=== PATIENT | female | born 1975 | race Caucasian/White ===

== ENCOUNTER 2024-04-20 01:21 | Emergency (ER) | payer MEDICAID, SELFPAY ==
[2024-04-20 01:23] VITALS: PULSE 76; RESP 20; O2SAT 96
[2024-04-20 01:33] VITALS: BP 138/86; PULSE 76; RESP 18; TEMP 36.6; O2SAT 99
--- NOTE | 2024-04-20 02:05 | PD.EDRME ---
Rapid Medical Screening Exam [facility] Arrival date/time: 04/20/24 01:21 49F with history of psych presents to ED with possible ab pain. Patient is talking to herself and is mostly incoherent. Chief Complaint: Abdominal Pain Vital signs: Vital Signs Temperature 98 F 04/20/24 01:33 Pulse Rate 76 04/20/24 01:33 Respiratory Rate 18 04/20/24 01:33 Blood Pressure 138/86 H 04/20/24 01:33 Pulse Oximetry (%) 99 04/20/24 01:33 Oxygen Delivery Method Room Air 04/20/24 01:33
[2024-04-20 03:45] LABS: Collection Type, Urine Clean Catch
[2024-04-20 04:18] LABS: Bilirubin,Urine Negative (Negative); Blood,Urine Negative (Negative); Clarity,Urine Clear (Clear/Hazy); Color,Urine Lt-Yellow (Lt Yel-Yel); Culture Indicated,Urine Not Indicated; Glucose, Urine Negative (Negative); Ketones,Urine Negative (Negative); Leukocyte Esterase,Urine Negative (Negative); Nitrite,Urine Negative (Negative); PH,Urine 5.5 (5.0-7.0); Protein,Urine Negative (Neg - Trace); RBC,Urine 2 /hpf (0-3); Specific Gravity,Urine 1.024 (1.001-1.035); Squamous Epithelial Cell,Urine 3 /hpf (0-5); Urobilinogen,Urine Negative mg/dL (0.0-1.0); WBC,Urine 3 /hpf (0-5)
[2024-04-20 04:26] LABS: Amphetamine/Methamp Scrn,U Positive (Negative); Barbiturate Screen,Urine Negative (Negative); Benzodiazepines Screen,Urine Negative (Negative); Benzoylecgonine Screen, Ur Negative (Negative); Fentanyl Screen,Urine Negative (Negative); Opiate Screen,Urine Negative (Negative); THC Screen,Urine Negative (Negative)
[2024-04-20 04:37] LABS: HCG Qualitative,Urine Negative
--- NOTE | 2024-04-20 07:47 | EDNOTE_ITS ---
ED Abdominal Pain RME/HPI General Chief Complaint: Abdominal Pain Stated complaint: ABDOMINAL PAIN Time seen by provider: 04/20/24 07:34 Arrival date/time: 04/20/24 0600 This is a 49 female significant past medical history of psych issues and drug- induced psychosis presents to Emergency for complaints of abdominal pain. Upon arrival patient requesting to eat a sandwich and wanting to sleep in the bed patient is homeless. No complaints verbalized. Source: patient RME / HPI RME / HPI narrative: 04/20/24 01:21 49F with history of psych presents to ED with possible ab pain. Patient is talking to herself and is mostly incoherent. Related Data Previous Rx's ?Medication ?Instructions ?Recorded albuterol sulfate 90 mcg/actuation 2 puff inhalation QID PRN 05/22/20 aerosol inhaler shortness of breath or wheezing #18 grams loratadine 10 mg capsule 10 mg PO QDAY PRN allergy symptoms 07/19/20 #30 caps betamethasone dipropionate 0.05 % 1 applic topical BID PRN skin 05/21/21 topical cream irritation #15 grams dimethicone 5 % topical cream 1 applic topical BID #118 mL 05/21/21 hydrocortisone 0.5 % topical cream 1 applic topical BID PRN skin 12/20/21 irritation #28.4 grams pantoprazole 40 mg tablet,delayed 40 mg PO QDAY #30 tabs 12/26/21 release (Protonix) risperidone 1 mg tablet 1 mg PO BID #30 tabs 12/26/21 amoxicillin 875 mg-potassium 1 tab PO BID #20 tabs 11/14/22 clavulanate 125 mg tablet ibuprofen 400 mg tablet 400 mg PO Q8H PRN pain #30 tabs 01/05/23 Allergies Allergy/AdvReac Type Severity Reaction Status Date / Time No Known Allergies Allergy Verified 07/31/23 01:37 Review of Systems Review of Systems Systems Reviewed: All systems reviewed, normal except as documented ED Exam Narrative Physical exam: Disheveled 49-year-old female General: Sittiing in Exam table in no acute distress, answering questions appropriately HENT: normocephalic, atraumatic, EOMI, PERRLA, moist mucous membranes Chest: chest wall is nontender Cardiac: regular rate and rhythm, normal S1 and S2, no murmurs, rubs, or gallops, capillary refill ?2 seconds Pulmonary: clear to auscultation bilaterally, no wheezing, crackles, or rhonchi Abdominal: active bowel sounds, soft, nontender, nondistended Neuro: A&OX3, CN II-XII intact, sensation grossly intact bilaterally in UE and LE. Skin: no rashes, no ecchymosis Ext: no lower extremity edema Course Quality Measures none Orders Category Date Time Status Drug Screen,Urine Stat Lab 04/20/24 03:30 Completed HCG Qualitative,Urine Stat Lab 04/20/24 03:30 Completed Urinalysis, C/S if Indicated Stat Lab 04/20/24 03:30 Completed Vital Signs Vital signs: Vital Signs Temperature 98 F 04/20/24 01:33 Pulse Rate 76 04/20/24 01:33 Respiratory Rate 18 04/20/24 01:33 Blood Pressure 138/86 H 04/20/24 01:33 Pulse Oximetry (%) 99 04/20/24 01:33 Oxygen Delivery Method Room Air 04/20/24 01:33 Abdominal Pain MDM MDM Narrative MDM Narrative:: Patient was evaluated in the emergency department for possible abdominal pain patient refused labs and any further workup Patient was to be discharged home Patient data External records reviewed:: [facility] previous records Clinical information provided by:: patient Social determinants that could affect healthcare access:: alcohol use Patient has the following chronic illnesses:: History of housing, substance abuse mental health How is presenting disease/condition affected by chronic disease/condition?: exacerbated by Evaluation data The following diagnostics were reviewed and interpreted by me:: lab results and radiology exam(s) Lab and/or radiology exams considered but not ordered:: no Interpretation Summary: None Medications / Prescriptions Medications or Prescriptions considered but not ordered:: no Medication administrations:: N/A Consultations Consultation(s) initiated? (list below): No Diagnosis Differential diagnosis abdominal pain: abdominal pain, endometriosis, gastroenteritis, pancreatitis and small bowel obstruction Most likely diagnosis given after review of the tests above:: Abdominal pain, drug abuse Admission Indicated Admission indicated?: not indicated Admission Request Was there a request for admission?: No Disposition Plan Disposition Plan: Discharge Discharge Attestation Discharge Attestation: The patient and all family members were given an opportunity to ask questions and understood the discharge instructions. Discharge instructions specifically effects, indications for sooner follow up or return to the emergency department, and the expected course of current diagnosis. Patient condition: Stable Discharge Plan Plan Patient Disposition: HOME (Self Care) Patient condition on transfer: Stable Prescriptions/Referrals Prescriptions/Med Rec: No Action hydrocortisone 0.5 % cream 1 applic topical BID PRN (Reason: skin irritation) Qty: 28.4 0RF albuterol sulfate 90 mcg/actuation HFA aerosol inhaler 2 puff inhalation QID PRN (Reason: shortness of breath or wheezing) Qty: 18 0RF loratadine 10 mg capsule 10 mg PO QDAY PRN (Reason: allergy symptoms) Qty: 30 0RF betamethasone dipropionate 0.05 % cream 1 applic topical BID PRN (Reason: skin irritation) Qty: 15 0RF dimethicone 5 % cream 1 applic topical BID Qty: 118 0RF risperidone 1 mg Tablet 1 mg PO BID Qty: 30 0RF pantoprazole [Protonix] 40 mg tablet,delayed release (DR/EC) 40 mg PO QDAY Qty: 30 0RF amoxicillin-pot clavulanate 875-125 mg tablet 1 tab PO BID Qty: 20 0RF ibuprofen 400 mg tablet 400 mg PO Q8H PRN (Reason: pain) Qty: 30 0RF Referrals: No Primary/Family,Physician [Primary Care Provider] - In 1 week Problem List Clinical Impression: Drug abuse Patient/Caregiver Discharge Instructions Discharge Activity: activity as tolerated Education Materials: ED Drug Abuse Additional Instructions: Please follow-up with your primary doctor return to the emergency department with any worsening symptoms change in condition. You need to stop using drugs it can harm your health Print Language: Angolan Stand Alone Forms: Obd[employer]ia Award Info., Patient Portal Info Letter PA/DIRECTOR OF ONCOLOGY Supervising Physician PA/DIRECTOR OF ONCOLOGY Supervising Physician: dr Mendosa
--- NOTE | 2024-04-20 07:51 | PC.NURSE ---
Patient refusing blood draw and repeat vitals. Provider talked to patient. Patient in nbo signs of acute distress at this time.
== END 2024-04-20 07:53 | disposition home or self-care (01) ==
PROVIDERS: Physician Assistant; Emergency Provider Emergency Medicine
DX: F19.10 Other psychoactive substance abuse, uncomplicated (principal); Z59.00 Homelessness unspecified
CPT/HCPCS: 80053; 80307; 80320; 81001; 81025; 83690; 85025; 99283; G0480

== ENCOUNTER 2024-05-02 02:50 | Emergency (ER) | payer MEDICAID, SELFPAY ==
[2024-05-02 02:51] VITALS: PULSE 88; RESP 18; O2SAT 96
[2024-05-02 03:21] VITALS: BP 117/75; PULSE 91; RESP 18; TEMP 36.7; O2SAT 97; BMI 17.4
--- NOTE | 2024-05-02 03:28 | XR_ITS ---
Examination: Abdomen sonogram, Limited Date and time of exam: April 01, 2025 0400 hrs. Indications: Onset epigastric pain beginning 3 days ago Technique: Real-time solorzano scale transabdominal sonographic images of the upper abdomen obtained. Findings: Absent gallbladder Normal common bile duct 0.3 cm Pancreatic head 2.1 cm Liver 11.6 cm smooth contour no focal liver lesions Normal hepatopedal portal venous flow Patent IVC Impression: Absent gallbladder Normal common bile duct No focal liver lesions
--- NOTE | 2024-05-02 03:29 | EDRME_ITS ---
Rapid Medical Screening Exam [facility] Arrival date/time: 05/02/24 02:50 49F with history of psych/drug use presents to ED with RUQ/epigastric pain. Chief Complaint: Abdominal Pain Vital signs: Vital Signs Temperature 98.0 F 05/02/24 03:21 Pulse Rate 91 05/02/24 03:21 Respiratory Rate 18 05/02/24 03:21 Blood Pressure 117/75 05/02/24 03:21 Pulse Oximetry (%) 97 05/02/24 03:21 Oxygen Delivery Method Room Air 05/02/24 03:21
--- NOTE | 2024-05-02 05:14 | PRELIM_ITS ---
Gallbladder ultrasound. May 02, 2024 at 0400 hoursClinical history: Right upper quadrant/epigastr ic pain.Findings:The visualized liver is normal in echogenicity without mass or ductal dilatation. Th e portal vein demonstrates hepatopetal flow. The hepatic veins are patent.The gallbladder is surgical ly absent. No evidence of fluid collection in the gallbladder fossa.The common duct is normal in diane sav at 3 mm. The pancreas is unremarkable to the extent visualized. The inferior vena cava is patent. Impression:Post cholecystectomy. No evidence of fluid collection in the gallbladder fossa. Report Alison ctronically Signed By: Mike Valderrama 05/02/2024 5:14:10 AM [EST]
--- NOTE | 2024-05-02 06:50 | PC.NURSE ---
PT WALKED OUT OF THE ER AND DID NOT RETURN.
== END 2024-05-02 06:50 | disposition left against medical advice (07) ==
LOC: SERX 05:53
PROVIDERS: Emergency Provider Emergency Medicine; PCP Family Medicine
DX: R10.13 Epigastric pain (principal); R10.11 Right upper quadrant pain; Z53.29 Procedure and treatment not carried out because of patient's decision for other reasons
CPT/HCPCS: 76705; 80053; 81001; 83690; 85025; 99281

== ENCOUNTER 2024-05-13 04:32 | Emergency (ER) | payer MEDICAID, SELFPAY ==
[2024-05-13 04:33] VITALS: PULSE 104; RESP 18; O2SAT 99
--- NOTE | 2024-05-13 04:53 | PD.EDRME ---
Rapid Medical Screening Exam [facility] Arrival date/time: 05/13/24 04:32 Chief Complaint: Dental/Oral/Throat Vital signs: Vital Signs Temperature 97.7 F 05/13/24 05:03 Pulse Rate 92 05/13/24 05:03 Respiratory Rate 17 05/13/24 05:03 Blood Pressure 118/72 05/13/24 05:03 Pulse Oximetry (%) 97 05/13/24 05:03 Oxygen Delivery Method Room Air 05/13/24 05:03 [facility] Narrative: Patient states she has a headache, she's hungry and has a rash to her buttocks.
[2024-05-13 05:03] VITALS: BP 118/72; PULSE 92; RESP 17; TEMP 36.5; O2SAT 97
--- NOTE | 2024-05-13 06:30 | PC.NURSE ---
shift production supervisor staff provided patient with clothes and food.
--- NOTE | 2024-05-13 08:09 | PC.NURSE ---
WENT TO LOBBY TO GET PT CHARU PROVIDER COULD LOOK AT [facility] ON BUTTOCKS. PT STOOD AND IS NOT WEARING PANTS (THEY ARE ON THE FLOOR, WET, NEXT TO HER IN THE LOBBY). PT WRAPPED IN 2 BLANKETS
--- NOTE | 2024-05-13 08:10 | PC.NURSE ---
PT WALKED TO RME 6 FOR EXAM BY PROVIDER. SAT IN CAIR AND THEN PT STOOD UP AND LAY DOWN ON THE FLOOR AND REFUSED TO GET BACK INTO CHAIR
--- NOTE | 2024-05-13 08:12 | EDNOTE_ITS ---
ED Skin Abcess FB-RME/HPI General Chief complaint: Dental/Oral/Throat Stated complaint: THROAT PAIN AND RECTAL PAIN Time Seen by Provider: 05/13/24 07:50 Source: patient Arrival date/time: 05/13/24 0700 This Is a 49-year-old female methamphetamine use and homeless patient who presents to the emergency department throat pain, and possible infection to her buttocks left side. Patient requesting a meal and a coffee. Denies any fever, chills no lethargy Mode of arrival: ambulatory RME / HPI RME / HPI narrative: Patient states she has a headache, she's hungry and has a rash to her buttocks. Related Data Previous Rx's ?Medication ?Instructions ?Recorded albuterol sulfate 90 mcg/actuation 2 puff inhalation QID PRN 05/22/20 aerosol inhaler shortness of breath or wheezing #18 grams loratadine 10 mg capsule 10 mg PO QDAY PRN allergy symptoms 07/19/20 #30 caps betamethasone dipropionate 0.05 % 1 applic topical BID PRN skin 05/21/21 topical cream irritation #15 grams dimethicone 5 % topical cream 1 applic topical BID #118 mL 05/21/21 hydrocortisone 0.5 % topical cream 1 applic topical BID PRN skin 12/20/21 irritation #28.4 grams pantoprazole 40 mg tablet,delayed 40 mg PO QDAY #30 tabs 12/26/21 release (Protonix) risperidone 1 mg tablet 1 mg PO BID #30 tabs 12/26/21 amoxicillin 875 mg-potassium 1 tab PO BID #20 tabs 11/14/22 clavulanate 125 mg tablet ibuprofen 400 mg tablet 400 mg PO Q8H PRN pain #30 tabs 01/05/23 cephalexin 500 mg capsule 500 mg PO BID 7 days #14 caps 05/13/24 Allergies Allergy/AdvReac Type Severity Reaction Status Date / Time No Known Allergies Allergy Verified 07/31/23 01:37 Review of Systems Review of Systems Systems Reviewed: All systems reviewed, normal except as documented Narrative Review of Systems: Gen: No fever, no chills, no weight loss EYES: No discharge, no visual changes, no pain HEENT: No ear pain, no congestion, no sore throat PULM: No shortness of breath, no cough, no congestion CV: No chest pain, no dyspnea on exertion, no palpitations GI: No nausea, no vomiting, no diarrhea, no pain, no constipation : No frequency, no urgency, no dysuria Musc/skel: No joint pain, no back pain Skin: Possible buttocks skin infection Psyc: No hallucinations, no depression Heme/Lymph: No easy bleeding or bruising tendencies Neuro: No weakness, no headache ED Exam Narrative Physical exam: General: Disheveled, foul odor 49-year-old female Sittiing in Exam table in no acute distress. HENT: normocephalic, atraumatic, EOMI, PERRLA, moist mucous membranes Chest: chest wall is nontender Cardiac: regular rate and rhythm, normal S1 and S2, no murmurs, rubs, or gallops, capillary refill ?2 seconds Pulmonary: clear to auscultation bilaterally, no wheezing, crackles, or rhonchi Abdominal: active bowel sounds, soft, nontender, nondistended Neuro: A&OX3, CN II-XII intact, sensation grossly intact bilaterally in UE and LE. Skin: Quarter size cellulitis pattern to left mid buttocks no fluctuance noted. Ext: no lower extremity edema Course Quality Measures none Orders Category Date Time Status Acetaminophen Tab [Tylenol ES Tab] Med 05/13/24 05:06 Discontinued 1,000 mg PO X1 ONE Vital Signs Vital signs: Vital Signs Temperature 97.7 F 05/13/24 05:03 Pulse Rate 92 05/13/24 05:03 Respiratory Rate 17 05/13/24 05:03 Blood Pressure 118/72 05/13/24 05:03 Pulse Oximetry (%) 97 05/13/24 05:03 Oxygen Delivery Method Room Air 05/13/24 05:03 Skin / Abscess / Foreign Body MDM Narrative MDM Narrative:: This is 49 y old homeless, history of mental illness drug abuse presents emergency department on multiple occasions today complaining of a possible boil to her left buttocks. Patient is disheveled presents to the ED are multiple ti mes especially during night because she is cold. Case management has been notified and has provided her close food. I visualized her small cellulitis to her left mid buttocks no abscess formation triple antibiotic packets handed to patient. And I sent a 7-day course of Keflex. Stefanyes to follow-up with her clinic 2 days for follow-up care return to the emergency department is any worsening symptoms change in condition. Patient data External records reviewed:: [facility] previous records and Other (specify) Clinical information provided by:: patient Social determinants that could affect healthcare access:: other (specify) ( substance abuse, housing, mental health) Patient has the following chronic illnesses:: Yes psych, mental disease, housing How is presenting disease/condition affected by chronic disease/condition?: exacerbated by Evaluation data The following diagnostics were reviewed and interpreted by me:: other (specify) Lab and/or radiology exams considered but not ordered:: no Interpretation Summary: none Medications / Prescriptions Medications or Prescriptions considered but not ordered:: Consider antibiotics Medication administrations:: Medication Administration History Discontinued Medications Acetaminophen (Acetaminophen 500 Mg Tablet) 1,000 mg PO X1 ONE Stop: 05/13/24 05:07 Last Admin: 05/13/24 05:33 Dose: Not Given Documented By: INDU Non-Admin Reason: Patient Refused No meds given Consultations Consultation(s) initiated? (list below): No Diagnosis Skin/Abscess Differential Diagnosis: abscess of skin or subcutaneous tissue, urticaria, allergic reaction to drug, cellulitis, insect bites and contact dermatitis Most likely diagnosis given after review of the tests above:: Buttock cellulitis. Drug abuse Admission Indicated Admission indicated?: not indicated Admission Request Was there a request for admission?: No Disposition Plan Disposition Plan: Discharge Discharge Attestation Discharge Attestation: The patient and all family members were given an opportunity to ask questions and understood the discharge instructions. Discharge instructions specifically effects, indications for sooner follow up or return to the emergency department, and the expected course of current diagnosis. Patient condition: Stable Discharge Plan Plan Patient Disposition: HOME (Self Care) Prescriptions/Referrals Prescriptions/Med Rec: New cephalexin 500 mg capsule 500 mg PO BID 7 Days Qty: 14 0RF No Action hydrocortisone 0.5 % cream 1 applic topical BID PRN (Reason: skin irritation) Qty: 28.4 0RF albuterol sulfate 90 mcg/actuation HFA aerosol inhaler 2 puff inhalation QID PRN (Reason: shortness of breath or wheezing) Qty: 18 0RF loratadine 10 mg capsule 10 mg PO QDAY PRN (Reason: allergy symptoms) Qty: 30 0RF betamethasone dipropionate 0.05 % cream 1 applic topical BID PRN (Reason: skin irritation) Qty: 15 0RF dimethicone 5 % cream 1 applic topical BID Qty: 118 0RF risperidone 1 mg Tablet 1 mg PO BID Qty: 30 0RF pantoprazole [Protonix] 40 mg tablet,delayed release (DR/EC) 40 mg PO QDAY Qty: 30 0RF amoxicillin-pot clavulanate 875-125 mg tablet 1 tab PO BID Qty: 20 0RF ibuprofen 400 mg tablet 400 mg PO Q8H PRN (Reason: pain) Qty: 30 0RF Referrals: Bryn Little MD [Primary Care Provider] - In 1 week Problem List Clinical Impression: Cellulitis Patient/Caregiver Discharge Instructions Discharge Activity: activity as tolerated Education Materials: ED Cellulitis Additional Instructions: Please pick and shovel man your antibiotics from your pharmacy. Apply triple antibiotic as directed. Follow-up with your primary doctor clinic 2 to 3 days for follow-up care Return to the emergency department if there is any worsening symptoms change in condition. Print Language: Belizean Stand Alone Forms: Obdulia Award Info., Patient Portal Info Letter PA/GOVERNMENT AFFAIRS MANAGER Supervising Physician PA/MELANY Supervising Physician: Dr Mendosa
--- NOTE | 2024-05-13 08:16 | PC.NURSE ---
AL FROM [employer] SUPERVISOR GOING UPSTAIRS TO GET CLOTHING FOR PT
--- NOTE | 2024-05-13 08:36 | PC.CC ---
ASW informed by ED staff that pt will need clothing items prior to D/c. ASW provided pt with weather appropriate shirt and pants. Pt noted to have a coat and shoes of her own. ASW will remain available as needed for pt care and staff support.
== END 2024-05-13 08:41 | disposition home or self-care (01) ==
PROVIDERS: Emergency Provider Emergency Medicine; PCP Family Medicine
DX: L03.317 Cellulitis of buttock (principal)
CPT/HCPCS: 99282

== ENCOUNTER 2024-06-21 01:58 | Emergency (ER) | payer MEDICAID, SELFPAY ==
[2024-06-21 02:12] VITALS: BP 110/64; PULSE 96; RESP 20; TEMP 36.4; O2SAT 98
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
== END 2024-06-21 07:24 | disposition home or self-care (01) ==
PROVIDERS: Emergency Provider Emergency Medicine
DX: R10.9 Unspecified abdominal pain (principal); Z59.00 Homelessness unspecified
CPT/HCPCS: 99283

== ENCOUNTER 2024-07-27 05:42 | Emergency (ER) | payer MEDICAID, SELFPAY ==
[2024-07-27 05:43] VITALS: BMI 21.9
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
== END 2024-07-27 06:27 | disposition left against medical advice (07) ==
LOC: SERX 06:30
PROVIDERS: Emergency Provider Emergency Medicine
DX: S49.90XA Unspecified injury of shoulder and upper arm, unspecified arm, initial encounter (principal); X58.XXXA Exposure to other specified factors, initial encounter; Z59.00 Homelessness unspecified; Z53.29 Procedure and treatment not carried out because of patient's decision for other reasons
CPT/HCPCS: 99281

== ENCOUNTER 2024-08-07 04:57 | Emergency (ER) | payer MEDICAID, SELFPAY ==
[2024-08-07 04:59] VITALS: PULSE 84; RESP 18; O2SAT 99; BMI 19.2
[2024-08-07 05:43] VITALS: BP 157/97; PULSE 86; RESP 18; TEMP 36.6; O2SAT 100
--- NOTE | 2024-08-07 06:15 | PC.NURSE ---
PATIENT WALKED OUT TO ED LOBBY AT THIS TIME.
== END 2024-08-07 06:46 | disposition left against medical advice (07) ==
LOC: SERX 06:36
PROVIDERS: Emergency Provider Emergency Medicine
DX: Z53.21 Procedure and treatment not carried out due to patient leaving prior to being seen by health care provider (principal)
CPT/HCPCS: 99281

== ENCOUNTER 2024-09-06 01:21 | Emergency (ER) | payer MEDICAID, SELFPAY ==
[2024-09-06 01:22] VITALS: BMI 19.7
--- NOTE | 2024-09-06 01:49 | PC.NURSE ---
STAFF CALLED PATIENT IN LOBBY AND OUTSIDE, NO ANSWER RECEIVED.
--- NOTE | 2024-09-06 02:05 | PC.NURSE ---
CALLED PATIENT IN THE LOBBY AND OUTSIDE, NO ANSWER RECEIVED.
--- NOTE | 2024-09-06 02:24 | PC.NURSE ---
CALLED PATIENT IN THE LOBBY AND OUTSIDE, NO ANSWER RECEIVED.
== END 2024-09-06 02:25 | disposition left against medical advice (07) ==
LOC: SERX 02:24
PROVIDERS: Emergency Provider Emergency Medicine
DX: Z53.21 Procedure and treatment not carried out due to patient leaving prior to being seen by health care provider (principal)

== ENCOUNTER 2024-10-10 19:31 | Emergency (ER) | payer MEDICAID, SELFPAY ==
[2024-10-10 19:32] VITALS: BMI 15.5
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
[2024-10-10 19:58] VITALS: BP 158/94; PULSE 95; RESP 20; TEMP 36.5; O2SAT 98
[2024-10-10 20:58] LABS: Collection Type, Urine Clean Catch
[2024-10-10 21:04] LABS: Basophils # (Auto) 0.1 Thou/mm3 (0.0-0.2); Basophils % (Auto) 1 % (0-2.5); Eosinophils # (Auto) 0.5 Thou/mm3 (0.0-0.5); Eosinophils % (Auto) 4 % (0-10); Hematocrit 41.3 % (36.0-46.0); Hemoglobin 13.4 g/dL (12.0-16.0); Immature Granulocytes % (Auto) 0 % (0-0); Immature Granulocytes Auto 0.04 Thou/mm3 (0.00-0.00); Lymphocytes # (Auto) 2.9 Thou/mm3 (1.0-4.8); Lymphocytes % (Auto) 26 % (10-50); Mean Corpuscular HGB Conc 32.4 g/dl (31.0-37.0); Mean Corpuscular Hemoglobin 29.3 pg (25.0-35.0); Mean Corpuscular Volume 90 fL (80-100); Monocytes # (Auto) 0.7 Thou/mm3 (0.0-0.8); Monocytes % (Auto) 7 % (0-12); Neutrophils # (Auto) 6.8 Thou/mm3 (1.8-7.7); Neutrophils % (Auto) 62 % (37-80); Nucleated Red Blood Cell % 0 /100 WBC (0); Platelet Count 285 Thou/mm3 (140-440); RDW Standard Deviation 42.4 fL (36.4-46.3); Red Blood Count 4.57 Miln/mm3 (4.00-5.20)
[2024-10-10 21:06] LABS: Bilirubin,Urine Negative (Negative); Blood,Urine Trace (Negative); Clarity,Urine Clear (Clear/Hazy); Color,Urine Lt-Yellow (Lt Yel-Yel); Culture Indicated,Urine Not Indicated; Glucose, Urine Negative (Negative); Ketones,Urine Negative (Negative); Leukocyte Esterase,Urine Positive (Negative); Nitrite,Urine Negative (Negative); Protein,Urine Negative (Neg - Trace); RBC,Urine 3 /hpf (0-3); Specific Gravity,Urine 1.029 (1.001-1.035); Squamous Epithelial Cell,Urine 1 /hpf (0-5); Urobilinogen,Urine Negative mg/dL (0.0-1.0); WBC,Urine 4 /hpf (0-5)
[2024-10-10 21:16] LABS: Alanine Aminotransferase 17 U/L (10-49); Albumin/Globulin Ratio 1.7 (1.2-2.2); Alkaline Phosphatase 96 U/L (46-116); Anion Gap 8 (7-16); BUN/Creatinine Ratio 20 Ratio (12-20); Bilirubin,Total 0.6 mg/dL (0.3-1.2); Blood Urea Nitrogen 18 mg/dL (9-23); Calcium 10.4 mg/dL (8.3-10.6); Calcium (Corrected) 10.4 mg/dL (8.5-10.1); Carbon Dioxide 31.4 mMol/L (20.0-31.0); Chloride 102 mMol/L (98-107); Creatinine (Component) 0.9 mg/dL (0.6-1.3); Glucose 94 mg/dL (74-106); Osmolality,Calculated 283 (275-295); Potassium 4.6 mMol/L (3.4-5.1); Sodium 141 mMol/L (136-145); eGFR > 60 See Note
--- NOTE | 2024-10-10 21:29 | PC.NURSE ---
CALLED NO ANSWER.
--- NOTE | 2024-10-10 21:37 | PC.NURSE ---
NA x2 @ [phone] per senior network security architect she walked off premises on security cameras
[2024-10-10 21:54] LABS: Syphilis Nonreactive (Nonreactive)
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
[2024-10-11 09:55] LABS: HIV (1&2) Antibody Rapid Non-Reactive
[2024-10-11 10:49] LABS: Chlamydia trachomatis PCR Negative (Not Detect); Neisseria Gonorrhoeae DNA PCR Negative (Not Detect); Trichomonas Positive (Negative)
== END 2024-10-10 21:43 | disposition left against medical advice (07) ==
LOC: SERX 20:02
PROVIDERS: Physician Assistant; Emergency Provider Emergency Medicine
DX: Z04.41 Encounter for examination and observation following alleged adult rape (principal); L29.2 Pruritus vulvae; Z59.00 Homelessness unspecified; Z53.29 Procedure and treatment not carried out because of patient's decision for other reasons
CPT/HCPCS: 36415; 80053; 81001; 85025; 86703; 86780; 87491; 87591; 87661; 99281

== ENCOUNTER 2024-10-13 19:39 | Emergency (ER) | payer MEDICAID, SELFPAY ==
[2024-10-13 19:40] VITALS: PULSE 86; RESP 16; O2SAT 98; BMI 23.6
[2024-10-13 19:54] VITALS: BP 157/87; PULSE 104; RESP 19; TEMP 36.5; O2SAT 98
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
[2024-10-13] MEDS: AZITHROMYCIN 250 MG TABLET 1000 MG PO (20:30)
[2024-10-13] MEDS: ONDANSETRON ODT 4 MG TABRAP PO (20:30)
[2024-10-13] MEDS: ACYCLOVIR 800 MG TABLET PO (20:30)
[2024-10-13] MEDS: metroNIDAZOLE 250 MG TABLET 2000 MG PO (20:31)
[2024-10-13] MEDS: cefTRIAXone 500 MG, LIDOCAINE 1% 20 ML 2.1 ML IM (20:34)
[2024-10-13] MEDS: FLUCONAZOLE 100 MG TABLET 200 MG PO (21:05)
--- NOTE | 2024-10-13 21:13 | PC.LAC ---
DR. RUIZ NOTIFIED THAT PATIENT IS REFUSING LAB DRAW, NO NEW ORDERS RECIEVED.
[2024-10-14 09:06] LABS: Chlamydia trachomatis PCR Negative (Not Detect); Neisseria Gonorrhoeae DNA PCR Negative (Not Detect); Trichomonas Positive (Negative)
== END 2024-10-13 21:45 | disposition home or self-care (01) ==
LOC: SERX 20:30
PROVIDERS: Emergency Provider Emergency Medicine
DX: N76.5 Ulceration of vagina (principal); Z59.00 Homelessness unspecified; F20.9 Schizophrenia, unspecified
CPT/HCPCS: 82784; 86695; 86696; 86703; 86780; 87491; 87591; 87661; 96372; 99283; J0696; J3490; Q0162; A9270

== ENCOUNTER 2024-10-14 02:08 | Emergency (ER) | payer MEDICAID, SELFPAY ==
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
[2024-10-14 02:28] VITALS: BP 125/79; PULSE 87; RESP 18; TEMP 36.8; O2SAT 96
--- NOTE | 2024-10-14 04:29 | PC.NURSE ---
THIS NURSE ATTEMPTED TO WAKE PATIENT UP IN THE LOBBY, PATIENT SLEEPING AT THIS TIME. PATIENT REFUSING TO GET UP AND WANTING TO GO BACK TO SLEEP. VIKI BRYAN MADE AWARE.
--- NOTE | 2024-10-14 05:44 | EDNOTE_ITS ---
ED Female Urogenital RME/HPI General Chief complaint: General Adult/Misc Complain Stated complaint: FOOT PAIN Time Seen by Provider: 10/14/24 05:43 Arrival date/time: 10/14/24 02:08 49F with history of psych/drug and homelessness presents to ED with dysuria. Patient was here earlier today and given multiple ABX. Limitations: no limitations Related Data Previous Rx's ?Medication ?Instructions ?Recorded albuterol sulfate 90 mcg/actuation 2 puff inhalation Q ID PRN 05/22/20 aerosol inhaler shortness of breath or wheez ing #18 grams loratadine 10 mg capsule 10 mg PO QDAY PRN allergy sy mptoms 07/19/20 #30 caps betamethasone dipropionate 0.05 % 1 applic topical BID PRN skin 05/21/21 topical cream irritation #15 grams dimethicone 5 % topical cream 1 applic topical BID #11 8 mL 05/21/21 hydrocortisone 0.5 % topical cream 1 applic topical BI D PRN skin 12/20/21 irritation #28.4 grams pantoprazole 40 mg tablet,delayed 40 mg PO QDAY #30 ta bs 12/26/21 release (Protonix) risperidone 1 mg tablet 1 mg PO BID #30 tabs 2 amoxicillin 875 mg-potassium 1 tab PO BID #20 tabs clavulanate 125 mg tablet ibuprofen 400 mg tablet 400 mg PO Q8H PRN pain #30 t abs 01/05/23 valacyclovir 1 gram tablet 1,000 mg PO BID 7 days #14 tabs 10/13/24 (Valtrex) Allergies Allergy/AdvReac Type Severity Reaction Status Date / Time No Known Allergies Allergy Verified 10/13/24 19:40 Review of Systems Review of Systems Systems Reviewed: All systems reviewed, normal except as documented Constitutional Constitutional: Reports system reviewed and no additional complaints, except as documented, Denies fever(s) and Denies headache(s) ENT Ears, Nose, Mouth, and Throat: Denies disequilibrium and Denies headache(s) Cardiovascular Cardiovascular: Reports system reviewed and no additional complaints, except as documented, Denies chest pain and Denies dyspnea Respiratory Respiratory: Reports system reviewed and no additional complaints, except as documented, Denies cough and Denies dyspnea Gastrointestinal Gastrointestinal: Reports system reviewed and no additional complaints, except as documented, Denies abdominal pain, Denies nausea and Denies vomiting Genitourinary Genitourinary: Reports as per HPI and Reports dysuria Neurologic Neurologic: Reports system reviewed and no additional complaints, except as documented, Denies confusion, Denies disequilibrium and Denies headache(s) Psychiatric Psychiatric: Denies confusion Past Medical History Past Medical History NEUROLOGIC: Negative Neurological Disorders CARDIAC: Negative Congestive Heart Failure RESPIRATORY: Negative Chronic Obstructive Pulmonary Disease (COPD) GASTROINTESTINAL: Positive Gastrointestinal Disorders and Diverticulitis (PERFORATED) GENITOURINARY: Positive Genitourinary Disorders; Negative Renal Disease ENDOCRINE: Negative Diabetes Mellitus Type 1 or Diabetes Mellitus Type 2 HEMATOLOGIC: Positive Anemia PSYCHO/SOCIAL: Positive Psychiatric Problems, Schizophrenia and Recreational Drug Use Surgical History SURGICAL: Positive Section Social History SMOKING STATUS: Current every day smoker SUBSTANCE USE: methamphetamine ED Exam General Limitations: Present no limitations General appearance: Present in no apparent distress and other (sleeping) Head Head exam: Present atraumatic Eye Eye exam: Present normal appearance, PERRL and EOMI ENT ENT exam: Present normal exam, normal oropharynx and mucous membranes moist Neck Neck exam: Present normal inspection, full ROM and trachea midline Chest Chest inspection: Present normal inspection and symmetric chest wall rise Respiratory Respiratory exam: Present normal lung sounds bilaterally Cardiovascular Cardiovascular exam: Present regular rate, normal rhythm and normal heart sounds Abdominal Exam Abdominal exam: Present soft and normal bowel sounds Extremities Exam Extremities exam: Present normal inspection and full ROM Back Exam Back exam: Present normal inspection and full ROM Neurological Exam Neurological exam: Present alert, oriented X3 and CN II-XII intact Psychiatric Psychiatric exam: Present normal affect and normal mood Skin Skin exam: Present warm, dry, intact and normal color Course Quality Measures none Orders Category Date Time Status Naproxen [Naprosyn] Med 10/14/24 05:43 Once 500 mg PO X1 ONE Vital Signs Vital signs: Vital Signs Temperature 98.3 F 10/14/24 02:28 Pulse Rate 87 10/14/24 02:28 Respiratory Rate 18 10/14/24 02:28 Blood Pressure 125/79 10/14/24 02:28 Pulse Oximetry (%) 96 10/14/24 02:28 Oxygen Delivery Method Room Air 10/14/24 02:28 O2 at 96% on RA and WNLs Urogenital - Female MDM Narrative MDM Narrative:: 49F with history of psych/drug and homelessness presents to ED with dysuria. Patient was here earlier today and given multiple ABX. Physical exam reveals sleeping individual in lobby. Patient is afebrile, calm, but sleepy. Meds and addictions counselor given. Patient data External records reviewed:: [facility] previous records Clinical information provided by:: patient Social determinants that could affect healthcare access:: mental health Patient has the following chronic illnesses:: psych/drug and homelessness How is presenting disease/condition affected by chronic disease/condition?: caused by Evaluation data The following diagnostics were reviewed and interpreted by me:: other (specify) (none) Lab and/or radiology exams considered but not ordered:: not ordered Interpretation Summary: n/a Medications / Prescriptions Medications or Prescriptions considered but not ordered:: ordered Medication administrations:: Medication Administration History Naproxen (Naproxen 250 Mg Tablet) 500 mg PO X1 ONE Stop: 10/14/24 05:44 above Consultations Consultation(s) initiated? (list below): No Diagnosis Urogenital Female Differential Diagnosis: urinary tract infection, bacterial vaginosis, trichomoniasis, cervicitis, ovarian cyst, vaginitis, ruptured ovarian cyst, cyst of Bartholin's gland, cystitis and dysmenorrhea Most likely diagnosis given after review of the tests above:: dysuria Admission Indicated Admission indicated?: not indicated Admission Request Was there a request for admission?: No Disposition Plan Disposition Plan: Discharge Discharge Attestation Discharge Attestation: The patient and all family members were given an opportunity to ask questions and understood the discharge instructions. Discharge instructions specifically effects, indications for sooner follow up or return to the emergency department, and the expected course of current diagnosis. Patient condition: Stable Discharge Plan Plan Patient Disposition: HOME (Self Care) Discharge Disposition comment: Stable Prescriptions/Referrals Prescriptions/Med Rec: No Action hydrocortisone 0.5 % cream 1 applic topical BID PRN (Reason: skin irritation) Qty: 28.4 0RF albuterol sulfate 90 mcg/actuation HFA aerosol inhaler 2 puff inhalation QID PRN (Reason: shortness of breath or wheezing) Qty: 18 0RF loratadine 10 mg capsule 10 mg PO QDAY PRN (Reason: allergy symptoms) Qty: 30 0RF betamethasone dipropionate 0.05 % cream 1 applic topical BID PRN (Reason: skin irritation) Qty: 15 0RF dimethicone 5 % cream 1 applic topical BID Qty: 118 0RF risperidone 1 mg Tablet 1 mg PO BID Qty: 30 0RF pantoprazole [Protonix] 40 mg tablet,delayed release (DR/EC) 40 mg PO QDAY Qty: 30 0RF amoxicillin-pot clavulanate 875-125 mg tablet 1 tab PO BID Qty: 20 0RF ibuprofen 400 mg tablet 400 mg PO Q8H PRN (Reason: pain) Qty: 30 0RF valacyclovir [Valtrex] 1 gram tablet 1,000 mg PO BID 7 Days Qty: 14 0RF Problem List Clinical Impression: Dysuria Patient/Caregiver Discharge Instructions Education Materials: ED Dysuria, Uncertain Cause (Adult) Additional Instructions: Please follow-up with PCP within 24-48 hours and return immediately if symptoms worsen. Print Language: Nigerien Stand Alone Forms: Patient Portal Info Letter PA/WOOD PLANER Supervising Physician VIKI/WOOD PLANER Supervising Physician: Dr. beck
[2024-10-14] MEDS: NAPROXEN 250 MG TABLET 500 MG PO (05:51)
[2024-10-14 05:53] VITALS: BMI 20.1
== END 2024-10-14 05:54 | disposition home or self-care (01) ==
LOC: SERX 05:54
PROVIDERS: Emergency Provider Emergency Medicine; PCP Family Medicine
DX: R30.0 Dysuria (principal)
CPT/HCPCS: 99282; A9270

== ENCOUNTER 2024-12-04 13:39 | Emergency (ER) | payer MEDICAID, SELFPAY ==
[2024-12-04 13:40] VITALS: BMI 18.3
--- NOTE | 2024-12-04 14:00 | PC.NURSE ---
PT SEEN LEAVING THE HOSPITAL PREMISES BY SECURITY. NO ANSWER WHEN CALLED.
--- NOTE | 2024-12-04 14:40 | PC.NURSE ---
PT DID NOT ANSWER WHEN CALLED, SECOND TIME.
--- NOTE | 2024-12-04 14:46 | PC.NURSE ---
PT WAS SEEN LEAVING BY SECURITY.
--- NOTE | 2024-12-04 15:27 | PC.NURSE ---
PT DID NOT ANSWER WHEN CALLED BY REGISTRATION, THIRD TIME. PT ELOPED.
== END 2024-12-04 15:28 | disposition left against medical advice (07) ==
LOC: SERX 15:27
PROVIDERS: Emergency Provider Physician Assistant
DX: Z53.21 Procedure and treatment not carried out due to patient leaving prior to being seen by health care provider (principal)
CPT/HCPCS: 99282

== ENCOUNTER 2025-03-07 20:44 | Emergency (ER) | payer MEDICAID, SELFPAY ==
[2025-03-07 20:45] VITALS: PULSE 102; RESP 18; O2SAT 97
[2025-03-07 21:31] VITALS: BP 149/79; PULSE 115; RESP 18; TEMP 37.1; O2SAT 95
--- NOTE | 2025-03-07 21:42 | PD.EDFMALE ---
ED Female Urogenital RME/HPI General Chief complaint: Urogenital-Female Stated complaint: ALIREZA DOSHI Time Seen by Provider: 03/07/25 21:11 Source: patient, EMS, RN notes reviewed and old records reviewed Arrival date/time: 03/07/25 20:44 Mode of arrival: ambulatory Limitations: other (Mental health) RME / HPI RME / HPI Narrative: 49yof presents to ED via EMS for genital pain. Limited history obtained as patient is talking, mumbling to herself during assessment. History of schizophrenia and drug use. Patient reports pain for the past 3 days. Denies injury today, patient states she fell down 3 months ago. Denies abdominal pain, dysuria, rash/lesion or vaginal discharge. Related Data Previous Rx's ?Medication ?Instructions ?Recorded albuterol sulfate 90 mcg/actuation 2 puff inhalation QID PRN 05/22/20 aerosol inhaler shortness of breath or wheezing #18 grams loratadine 10 mg capsule 10 mg PO QDAY PRN allergy symptoms 07/19/20 #30 caps betamethasone dipropionate 0.05 % 1 applic topical BID PRN skin 05/21/21 topical cream irritation #15 grams dimethicone 5 % topical cream 1 applic topical BID #118 mL 05/21/21 hydrocortisone 0.5 % topical cream 1 applic topical BID PRN skin 12/20/21 irritation #28.4 grams pantoprazole 40 mg tablet,delayed 40 mg PO QDAY #30 tabs 12/26/21 release (Protonix) risperidone 1 mg tablet 1 mg PO BID #30 tabs 12/26/21 amoxicillin 875 mg-potassium 1 tab PO BID #20 tabs 11/14/22 clavulanate 125 mg tablet ibuprofen 400 mg tablet 400 mg PO Q8H PRN pain #30 tabs 01/05/23 Allergies Allergy/AdvReac Type Severity Reaction Status Date / Time No Known Allergies Allergy Verified 12/04/24 13:42 Review of Systems Review of Systems Systems Reviewed: All systems reviewed, normal except as documented Constitutional Constitutional: Denies chills and Denies fever(s) Gastrointestinal Gastrointestinal: Denies abdominal pain, Denies nausea and Denies vomiting Genitourinary Genitourinary: Denies dysuria, Denies genital lesions, Denies pelvic pain, Denies vaginal discharge and Denies vaginal pruritus Comments: Reports genital pain Musculoskeletal Musculoskeletal: Denies back pain ED Exam General Limitations: Present other (Mental health) General appearance: Present alert, in no apparent distress and other (Poor hygiene, disheveled) Head Head exam: Present atraumatic and normocephalic Eye Eye exam: Present normal appearance, PERRL and EOMI ENT ENT exam: Present normal exam and mucous membranes moist Neck Neck exam: Present normal inspection and full ROM Chest Chest inspection: Present normal inspection and symmetric chest wall rise Respiratory Respiratory exam: Present normal lung sounds bilaterally; Absent respiratory distress Cardiovascular Cardiovascular exam: Present normal rhythm and tachycardia Abdominal Exam Abdominal exam: Present soft; Absent distention, tenderness, guarding or rebound Expanded Exam OB exam: Present deferred (Patient refused exam) Back Exam Back exam: Present normal inspection and full ROM Neurological Exam Neurological exam: Present alert Psychiatric Psychiatric exam: Present other (Flight of ideas, anxious) Skin Skin exam: Present warm, dry and intact Course Quality Measures none Orders Category Date Time Status Acetaminophen Tab [Tylenol ES Tab] Med 03/07/25 21:41 Discontinued 1,000 mg PO X1 ONE Vital Signs Vital signs: Vital Signs Temperature 98.7 F 03/07/25 21:31 Pulse Rate 115 H 03/07/25 21:31 Respiratory Rate 18 03/07/25 21:31 Blood Pressure 149/79 H 03/07/25 21:31 Pulse Oximetry (%) 95 03/07/25 21:31 Oxygen Delivery Method Room Air 03/07/25 21:31 Urogenital - Female MDM Narrative MDM Narrative:: 49yof presents to ED via EMS for genital pain. Limited history obtained as patient is talking, mumbling to herself during assessment. History of schizophrenia and drug use. Patient reports pain for the past 3 days. Denies injury today, patient states she fell down 3 months ago. Denies abdominal pain, dysuria, rash/lesion or vaginal discharge. Patient data External records reviewed:: [facility] previous records (10/14/2024 ED visit for dysuria) Clinical information provided by:: patient and EMS Social determinants that could affect healthcare access:: mental health Patient has the following chronic illnesses:: Schizophrenia, meth use How is presenting disease/condition affected by chronic disease/condition?: exacerbated by Evaluation data The following diagnostics were reviewed and interpreted by me:: other (specify) (None) Lab and/or radiology exams considered but not ordered:: None Interpretation Summary: na Medications / Prescriptions Medications or Prescriptions considered but not ordered:: None Medication administrations:: Medication Administration History Discontinued Medications Acetaminophen (Acetaminophen 500 Mg Tablet) 1,000 mg PO X1 ONE Stop: 03/07/25 21:42 Above medication administered in ED Consultations Consultation(s) initiated? (list below): No Diagnosis Urogenital Female Differential Diagnosis: urinary tract infection, bacterial vaginosis, trichomoniasis, cervicitis, vaginitis, cyst of Bartholin's gland and cystitis Most likely diagnosis given after review of the tests above:: pain Admission Indicated Admission indicated?: not indicated Admission Request Was there a request for admission?: No Disposition Plan Disposition Plan: other (specify) (Eloped) Discharge Plan Plan Patient Disposition: Elopement Patient condition on transfer: Stable Prescriptions/Referrals Prescriptions/Med Rec: No Action hydrocortisone 0.5 % cream 1 applic topical BID PRN (Reason: skin irritation) Qty: 28.4 0RF albuterol sulfate 90 mcg/actuation HFA aerosol inhaler 2 puff inhalation QID PRN (Reason: shortness of breath or wheezing) Qty: 18 0RF loratadine 10 mg capsule 10 mg PO QDAY PRN (Reason: allergy symptoms) Qty: 30 0RF betamethasone dipropionate 0.05 % cream 1 applic topical BID PRN (Reason: skin irritation) Qty: 15 0RF dimethicone 5 % cream 1 applic topical BID Qty: 118 0RF risperidone 1 mg Tablet 1 mg PO BID Qty: 30 0RF pantoprazole [Protonix] 40 mg tablet,delayed release (DR/EC) 40 mg PO QDAY Qty: 30 0RF amoxicillin-pot clavulanate 875-125 mg tablet 1 tab PO BID Qty: 20 0RF ibuprofen 400 mg tablet 400 mg PO Q8H PRN (Reason: pain) Qty: 30 0RF Referrals: No Primary/Family,Physician [Primary Care Provider] - In 1 week Problem List Clinical Impression: Pain of female genitalia Patient/Caregiver Discharge Instructions Print Language: Turkmen PA/LEAD EMBEDDED SOFTWARE ENGINEER Supervising Physician PA/LEAD EMBEDDED SOFTWARE ENGINEER Supervising Physician: Josh
== END 2025-03-07 22:24 | disposition left against medical advice (07) ==
LOC: SERX 22:03
PROVIDERS: Emergency Provider Emergency Medicine
DX: R30.9 Painful micturition, unspecified (principal)
CPT/HCPCS: 81001; 99281

== ENCOUNTER 2025-03-29 05:20 | Emergency (ER) | payer MEDICAID, SELFPAY ==
[2025-03-29 05:21] VITALS: BMI 52.0
[2025-03-29 05:37] VITALS: BP 104/74; PULSE 106; RESP 19; TEMP 36.9; O2SAT 97
--- NOTE | 2025-03-29 06:16 | PD.EDFMALE ---
ED Female Urogenital RME/HPI General Chief complaint: General Adult/Misc Complain Stated complaint: VAG PAIN Time Seen by Provider: 03/29/25 06:12 Source: patient Arrival date/time: 03/29/25 05:20 49-year-old female with no known medical history presents to the emergency room with a chief complaint of dysuria x 1 week Mode of arrival: ambulatory Limitations: no limitations Related Data Previous Rx's ?Medication ?Instructions ?Recorded albuterol sulfate 90 mcg/actuation 2 puff inhalation QID PRN 05/22/20 aerosol inhaler shortness of breath or wheezing #18 grams loratadine 10 mg capsule 10 mg PO QDAY PRN allergy symptoms 07/19/20 #30 caps betamethasone dipropionate 0.05 % 1 applic topical BID PRN skin 05/21/21 topical cream irritation #15 grams dimethicone 5 % topical cream 1 applic topical BID #118 mL 05/21/21 hydrocortisone 0.5 % topical cream 1 applic topical BID PRN skin 12/20/21 irritation #28.4 grams pantoprazole 40 mg tablet,delayed 40 mg PO QDAY #30 tabs 12/26/21 release (Protonix) risperidone 1 mg tablet 1 mg PO BID #30 tabs 12/26/21 amoxicillin 875 mg-potassium 1 tab PO BID #20 tabs 11/14/22 clavulanate 125 mg tablet ibuprofen 400 mg tablet 400 mg PO Q8H PRN pain #30 tabs 01/05/23 sulfamethoxazole 800 1 tab PO BID #14 tabs 03/29/25 mg-trimethoprim 160 mg tablet (Bactrim DS) Allergies Allergy/AdvReac Type Severity Reaction Status Date / Time No Known Allergies Allergy Verified 03/29/25 05:24 Review of Systems Review of Systems Systems Reviewed: All systems reviewed, normal except as documented Constitutional Constitutional: Reports system reviewed and no additional complaints, except as documented, Denies fatigue, Denies fever(s), Denies headache(s) and Denies weakness Eyes Eyes: Reports system reviewed and no additional complaints, except as documented, Denies blurry vision and Denies change in vision ENT Ears, Nose, Mouth, and Throat: Reports system reviewed and no additional complaints, except as documented, Denies otalgia, Denies headache(s), Denies nasal congestion, Denies throat swelling and Denies vertigo Cardiovascular Cardiovascular: Reports system reviewed and no additional complaints, except as documented, Denies chest pain, Denies dyspnea and Denies dyspnea on exertion Respiratory Respiratory: Reports system reviewed and no additional complaints, except as documented, Denies chest congestion, Denies cough, Denies dyspnea, Denies dyspnea on exertion and Denies wheezing Gastrointestinal Gastrointestinal: Reports system reviewed and no additional complaints, except as documented, Denies abdominal pain, Denies cramping, Denies nausea and Denies vomiting Genitourinary Genitourinary: Reports system reviewed and no additional complaints, except as documented, Denies abnormal vaginal bleeding and Reports dysuria Musculoskeletal Musculoskeletal: Reports system reviewed and no additional complaints, except as documented and Denies back pain Integumentary/Breasts Skin/Breast: Reports system reviewed and no additional complaints, except as documented and Denies wounds Neurologic Neurologic: Reports system reviewed and no additional complaints, except as documented, Denies confusion, Denies headache(s), Denies lack of coordination, Denies vertigo and Denies weakness Psychiatric Psychiatric: Reports system reviewed and no additional complaints, except as documented, Denies anxiety, Denies confusion, Denies depression, Denies paranoia, Denies suicidal ideation and Denies tactile hallucinations Endocrine Endocrine: Reports system reviewed and no additional complaints, except as documented and Denies fatigue Hematologic/Lymphatic Hematologic/Lymphatic: Reports system reviewed and no additional complaints, except as documented and Denies lymphadenopathy Allergic/Immunologic Allergic/Immunologic: Reports system reviewed and no additional complaints, except as documented, Denies throat swelling, Denies urticaria and Denies wheezing Past Medical History Past Medical History NEUROLOGIC: Negative Neurological Disorders CARDIAC: Negative Congestive Heart Failure RESPIRATORY: Negative Chronic Obstructive Pulmonary Disease (COPD) GASTROINTESTINAL: Positive Gastrointestinal Disorders and Diverticulitis (PERFORATED) GENITOURINARY: Positive Genitourinary Disorders; Negative Renal Disease ENDOCRINE: Negative Diabetes Mellitus Type 1 or Diabetes Mellitus Type 2 HEMATOLOGIC: Positive Anemia PSYCHO/SOCIAL: Positive Psychiatric Problems, Schizophrenia and Recreational Drug Use Surgical History SURGICAL: Positive Section Social History SMOKING STATUS: Current every day smoker SUBSTANCE USE: methamphetamine ED Exam General Limitations: Present no limitations General appearance: Present alert and in no apparent distress Head Head exam: Present atraumatic Eye Eye exam: Present normal appearance, PERRL and EOMI ENT ENT exam: Present normal exam, normal oropharynx and mucous membranes moist Neck Neck exam: Present normal inspection, full ROM and trachea midline Chest Chest inspection: Present normal inspection and symmetric chest wall rise Respiratory Respiratory exam: Present normal lung sounds bilaterally Cardiovascular Cardiovascular exam: Present regular rate, normal rhythm and normal heart sounds Abdominal Exam Abdominal exam: Present soft and normal bowel sounds; Absent distention, tenderness, guarding, rebound or rigidity Extremities Exam Extremities exam: Present normal inspection and full ROM Back Exam Back exam: Present normal inspection and full ROM Neurological Exam Neurological exam: Present alert, oriented X3 and CN II-XII intact Psychiatric Psychiatric exam: Present normal affect and normal mood Skin Skin exam: Present warm, dry, intact and normal color Course Quality Measures none Orders Category Date Time Status Drug Screen,Urine Stat Lab 03/29/25 06:18 Ordered UA, C/S IF [Urinalysis, C/S if Indicated] Stat Lab 03/29/25 06:15 Ordered cefTRIAXone [Rocephin] 1,000 mg Med 03/29/25 06:17 Discontinued Lidocaine 1% Pf Vial 5ml [Xylocaine 1% 5 ml] 2.1 ml IM X1 Vital Signs Vital signs: Vital Signs Temperature 98.4 F 03/29/25 05:37 Pulse Rate 106 H 03/29/25 05:37 Respiratory Rate 19 03/29/25 05:37 Blood Pressure 104/74 03/29/25 05:37 Pulse Oximetry (%) 97 03/29/25 05:37 Oxygen Delivery Method Room Air 03/29/25 05:37 Urogenital - Female MDM Narrative MDM Narrative:: 49-year-old female with no known medical history presents to the emergency room with a chief complaint of dysuria x 1 week Patient is hemodynamically stable and in no apparent distress Physical examination shows a soft nontender abdomen. There is no bilateral flank pain or CVA tenderness Lung sounds are clear bilaterally. The patient has a history of schizophrenia and homelessness. During reevaluation the patient states she is unable to give a urine sample due to being incontinent. Patient states she would just like to be treated and discharged. A shot of Rocephin was given and the patient was treated for a urinary tract infection prophylactically. The patient is afebrile. Patient was educated to return to the emergency room for any evidence of worsening signs or symptoms. Patient data External records reviewed:: [facility] previous records Clinical information provided by:: patient Social determinants that could affect healthcare access:: housing Patient has the following chronic illnesses:: Schizophrenia How is presenting disease/condition affected by chronic disease/condition?: uneffected by Evaluation data The following diagnostics were reviewed and interpreted by me:: lab results Lab and/or radiology exams considered but not ordered:: Labs and radiology exams considered and ordered Interpretation Summary: N/A Medications / Prescriptions Medications or Prescriptions considered but not ordered:: Medication given Medication administrations:: Medication Administration History Discontinued Medications Ceftriaxone Sodium 1,000 mg/ (Lidocaine HCl 2.1 ml) 0 mg IM X1 ONE Stop: 03/29/25 06:18 Last Admin: 03/29/25 07:43 Dose: 1,000 mg Documented By: TM Medication given Consultations Consultation(s) initiated? (list below): No Diagnosis Urogenital Female Differential Diagnosis: urinary tract infection, vaginitis and cystitis Most likely diagnosis given after review of the tests above:: Urinary tract infection Admission Indicated Admission indicated?: not indicated Admission Request Was there a request for admission?: No Disposition Plan Disposition Plan: Discharge Discharge Attestation Discharge Attestation: The patient and all family members were given an opportunity to ask questions and understood the discharge instructions. Discharge instructions specifically effects, indications for sooner follow up or return to the emergency department, and the expected course of current diagnosis. Patient condition: Stable Discharge Plan Plan Patient Disposition: HOME (Self Care) Prescriptions/Referrals Prescriptions/Med Rec: New sulfamethoxazole-trimethoprim [Bactrim DS] 800-160 mg tablet 1 tab PO BID Qty: 14 0RF No Action hydrocortisone 0.5 % cream 1 applic topical BID PRN (Reason: skin irritation) Qty: 28.4 0RF albuterol sulfate 90 mcg/actuation HFA aerosol inhaler 2 puff inhalation QID PRN (Reason: shortness of breath or wheezing) Qty: 18 0RF loratadine 10 mg capsule 10 mg PO QDAY PRN (Reason: allergy symptoms) Qty: 30 0RF betamethasone dipropionate 0.05 % cream 1 applic topical BID PRN (Reason: skin irritation) Qty: 15 0RF dimethicone 5 % cream 1 applic topical BID Qty: 118 0RF risperidone 1 mg Tablet 1 mg PO BID Qty: 30 0RF pantoprazole [Protonix] 40 mg tablet,delayed release (DR/EC) 40 mg PO QDAY Qty: 30 0RF amoxicillin-pot clavulanate 875-125 mg tablet 1 tab PO BID Qty: 20 0RF ibuprofen 400 mg tablet 400 mg PO Q8H PRN (Reason: pain) Qty: 30 0RF Referrals: No Primary/Family,Physician [Primary Care Provider] - In 1 week Problem List Clinical Impression: Urinary tract infection Patient/Caregiver Discharge Instructions Education Materials: ED CYSTITIS Female Adult Additional Instructions: Please follow-up with your primary care provider in the next 24 to 48 hours Medication was sent to your pharmacy please pick them up and take them as indicated For any evidence of worsening signs or symptoms return to the emergency room immediately Print Language: Surinamese Stand Alone Forms: Obdulia Award Info., Work/School Release, Patient Portal Info Letter PA/PAPERBOARD MACHINE OPERATOR Supervising Physician PA/PAPERBOARD MACHINE OPERATOR Supervising Physician: Dr. Falcon
== END 2025-03-29 07:57 | disposition home or self-care (01) ==
PROVIDERS: Emergency Provider Nurse Practitioner Family
DX: N39.0 Urinary tract infection, site not specified (principal)
CPT/HCPCS: 80307; 81001; 96372; 99282; J0696; J3490

== ENCOUNTER 2025-03-29 10:42 | Inpatient (IN) | payer MEDICAID, SELFPAY ==
[2025-03-29] VITALS (13 sets, daily range): BP systolic 90–144; BP diastolic 54–78; PULSE 71–120; RESP 15–28; TEMP 36.2–39.9; O2SAT 95–100; BMI 16.8; BMI 18.5
--- NOTE | 2025-03-29 11:27 | EKG_ITS ---
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
--- NOTE | 2025-03-29 11:27 | XR_ITS ---
EXAMINATION: AP chest single view TECHNIQUE: AP portable semiupright chest single view Date and time: March 29, 2025, 1228 hours INDICATIONS: Sepsis alert FINDINGS: No significant cardiac enlargement No pneumonia or pulmonary edema. Moderate osteopenia IMPRESSION: No pneumonia identified
--- NOTE | 2025-03-29 11:28 | PD.EDADULT ---
ED General RME/HPI General Chief complaint: General Adult/Misc Complain Stated complaint: BODY PAIN Time Seen by Provider: 03/29/25 11:22 Arrival date/time: 03/29/25 10:42 49-year-old female patient with significant history of schizophrenia, homelessness, was brought in by EMS for evaluation regarding generalized body weakness. History is very limited, when I asked the patient patient only answer simple question. Patient complaining of feeling very cold and generalized body weakness. Was seen here earlier today and was diagnosed with UTI. Patient was noted to be shivering. No other complaints noted. Related Data Previous Rx's ?Medication ?Instructions ?Recorded albuterol sulfate 90 mcg/actuation 2 puff inhalation QID PRN 05/22/20 aerosol inhaler shortness of breath or wheezing #18 grams loratadine 10 mg capsule 10 mg PO QDAY PRN allergy symptoms 07/19/20 #30 caps betamethasone dipropionate 0.05 % 1 applic topical BID PRN skin 05/21/21 topical cream irritation #15 grams dimethicone 5 % topical cream 1 applic topical BID #118 mL 05/21/21 hydrocortisone 0.5 % topical cream 1 applic topical BID PRN skin 12/20/21 irritation #28.4 grams pantoprazole 40 mg tablet,delayed 40 mg PO QDAY #30 tabs 12/26/21 release (Protonix) risperidone 1 mg tablet 1 mg PO BID #30 tabs 12/26/21 amoxicillin 875 mg-potassium 1 tab PO BID #20 tabs 11/14/22 clavulanate 125 mg tablet ibuprofen 400 mg tablet 400 mg PO Q8H PRN pain #30 tabs 01/05/23 sulfamethoxazole 800 1 tab PO BID #14 tabs 03/29/25 mg-trimethoprim 160 mg tablet (Bactrim DS) Allergies Allergy/AdvReac Type Severity Reaction Status Date / Time No Known Allergies Allergy Verified 03/29/25 05:24 Review of Systems Review of Systems Narrative Review of Systems: Review of system reviewed and within normal limits except mentioned in HPI ED Exam Narrative Physical exam: VITAL SIGNS: Reviewed. GENERAL APPEARANCE: Alert and interactive, follows commands, no acute distress, drowsy HEAD AND FACE: Non-traumatic. ENT: PERRL, pink conjunctivitis, eyelid no trauma, Mucous membrane moist. NECK: Supple, nontender, no nuchal rigidity. CHEST: No tenderness, no crepitus, no paradoxical movement, no retractions. LUNGS: Clear, well ventilated, symmetric, no rales, no wheezing, no ronchi, no stridor, good breath sounds bilaterally. HEART: Regular rate, regular rhythm, no murmur, no gallops. ABDOMEN: Soft, positive bowel sounds, nondistended, no guarding, nontender, no rebound, no masses, RECTAL: Deferred. GENITAL: + Redness and swelling noted on the left labia majora, nonfluctuant with tenderness, no necrosis noted NEUROLOGICAL: Gross motor function intact sensory function intact, Appropriate for age. MUSCULOSKELETAL: low back nontender, full range of motion. EXTREMITIES: Nontender, full range of motion. SKIN: Color pink, dry, no rash, no lacerations, no abrasions, no contusions. LYMPHATICS: Deferred. Course Quality Measures none Orders Category Date Time Status Admit to Inpatient Status Routine Admission 03/29/25 21:15 Active Patient Condition Routine Admission 03/29/25 21:15 Ordered Activity as Tolerated Routine Care 03/29/25 21:[address] Screening NOW Care 03/29/25 11:45 Active Continuous Pulse Oximetry NOW Care 03/29/25 21:15 Completed EKG (ED ONLY) *Do not use* NOW Care 03/29/25 11:28 Completed Flu & Pneumonia Vaccine Screen ONCE Care 03/29/25 21:21 Active Notify provider NEEDED Care 03/29/25 21:15 Active Occult Blood,Stool (Nursing) NEEDED Care 03/29/25 15:58 Active Occult Blood,Stool (Nursing) ONCE Care 03/29/25 15:59 Active Straight [In and Out Catheter] X1 Care 03/29/25 12:06 Completed Diet Regular Diet 03/30/[address] abdomen pelvis w con Stat Exams 03/29/25 11:45 Completed EKG (ED Only) Stat Exams 03/29/25 11:27 Draft US gall bladder Stat Exams 03/29/25 15:51 Completed XR chest 1V Stat Exams 03/29/25 11:27 Completed Blood Culture (Lab) Stat Lab 03/29/25 12:05 Received CBC AM DRAW Lab 03/30/25 05:00 Ordered CBC AM DRAW Lab 03/31/25 05:00 Ordered CBC AM DRAW Lab 04/01/25 05:00 Ordered CBC AM DRAW Lab 04/02/25 05:00 Ordered CBC AM DRAW Lab 04/03/25 05:00 Ordered CBC AM DRAW Lab 04/04/25 05:00 Ordered CBC AM DRAW Lab 04/05/25 05:00 Ordered CBC AM DRAW Lab 04/06/25 05:00 Ordered CBC AM DRAW Lab 04/07/25 05:00 Ordered CBC AM DRAW Lab 04/08/25 05:00 Ordered CBC Stat Lab 03/29/25 12:05 Completed CMP [Comprehensive Metabolic Panel] AM DRAW Lab 03/30/25 05:00 Ordered CMP [Comprehensive Metabolic Panel] AM DRAW Lab 03/31/25 05:00 Ordered CMP [Comprehensive Metabolic Panel] AM DRAW Lab 04/01/25 05:00 Ordered CMP [Comprehensive Metabolic Panel] AM DRAW Lab 04/02/25 05:00 Ordered CMP [Comprehensive Metabolic Panel] AM DRAW Lab 04/03/25 05:00 Ordered CMP [Comprehensive Metabolic Panel] AM DRAW Lab 04/04/25 05:00 Ordered CMP [Comprehensive Metabolic Panel] AM DRAW Lab 04/05/25 05:00 Ordered CMP [Comprehensive Metabolic Panel] AM DRAW Lab 04/06/25 05:00 Ordered CMP [Comprehensive Metabolic Panel] AM DRAW Lab 04/07/25 05:00 Ordered CMP [Comprehensive Metabolic Panel] AM DRAW Lab 04/08/25 05:00 Ordered COVID-19 Antigen (In-House) Stat Lab 03/29/25 14:15 Completed Comprehensive Metabolic Panel Stat Lab 03/29/25 13:21 Completed Drug Screen,Urine Stat Lab 03/29/25 14:07 Completed Folate Stat Lab 03/29/25 21:35 Received HCG Qualitative,Urine Stat Lab 03/29/25 14:07 Completed Influenza A & B Rapid Panel Stat Lab 03/29/25 14:15 Completed Lactate (Lactic Acid) Stat Lab 03/29/25 12:05 Completed Lactic Acid, 3 HR Stat Lab 03/29/25 15:32 Completed Lipase Stat Lab 03/29/25 13:21 Completed Mag [Magnesium] AM DRAW Lab 03/30/25 05:00 Ordered Mag [Magnesium] AM DRAW Lab 03/31/25 05:00 Ordered Mag [Magnesium] AM DRAW Lab 04/01/25 05:00 Ordered Mag [Magnesium] AM DRAW Lab 04/02/25 05:00 Ordered Mag [Magnesium] AM DRAW Lab 04/03/25 05:00 Ordered Mag [Magnesium] AM DRAW Lab 04/04/25 05:00 Ordered Mag [Magnesium] AM DRAW Lab 04/05/25 05:00 Ordered Mag [Magnesium] AM DRAW Lab 04/06/25 05:00 Ordered Mag [Magnesium] AM DRAW Lab 04/07/25 05:00 Ordered Mag [Magnesium] AM DRAW Lab 04/08/25 05:00 Ordered Partial Thromboplastin Time Stat Lab 03/29/25 12:05 [address] Review Blood Smear Stat Lab 03/29/25 12:05 Completed Phosphorous AM DRAW Lab 03/30/25 05:00 Ordered Phosphorous AM DRAW Lab 03/31/25 05:00 Ordered Phosphorous AM DRAW Lab 04/01/25 05:00 Ordered Phosphorous AM DRAW Lab 04/02/25 05:00 Ordered Phosphorous AM DRAW Lab 04/03/25 05:00 Ordered Phosphorous AM DRAW Lab 04/04/25 05:00 Ordered Phosphorous AM DRAW Lab 04/05/25 05:00 Ordered Phosphorous AM DRAW Lab 04/06/25 05:00 Ordered Phosphorous AM DRAW Lab 04/07/25 05:00 Ordered Phosphorous AM DRAW Lab 04/08/25 05:00 Ordered Procalcitonin Stat Lab 03/29/25 13:21 Completed Thyroid Stimulating Hormone AM DRAW Lab 03/30/25 05:00 Ordered Troponin I Stat Lab 03/29/25 13:21 Completed Type and Screen Stat Lab 03/29/25 21:35 Results Urinalysis, C/S if Indicated Stat Lab 03/29/25 14:07 Completed Vitamin B12 Stat Lab 03/29/25 21:35 Received prbc [Red Blood Cells] Stat Lab 03/29/25 21:35 Results Acetaminophen Ivpb [Ofirmev Inj] Med 03/29/25 11:44 Discontinued 1,000 mg in 100 ml IV X1 Acetaminophen Tab [Tylenol Tab] Med 03/29/25 21:15 Active 650 mg PO Q6H PRN Docusate Sod [Colace] Med 03/30/25 09:00 Active 100 mg PO QDAY HYDROcodone*/APAP 5/325 [[place] 5/325] Med 03/29/25 21:15 Active 1 tab PO Q4HR PRN Heparin Inj Med 03/30/25 09:00 Active 5,000 unit SC Q12HR Morphine* Inj Med 03/29/25 21:15 Active 1 mg IVP Q4HR PRN Ondansetron Inj [Zofran Inj] Med 03/29/25 21:15 Active 4 mg IVP Q6H PRN Pantoprazole [Protonix] Med 03/30/25 09:00 Active 40 mg PO QDAY Piper/Tazo 3.375 gm Premix [Zosyn] Med 03/29/25 15:52 Discontinued 3.375 gm in 50 ml IV X1 Ringers Lactated 1000 ml [Lactated Ringers] 1,000 ml Med 03/29/25 11:44 Discontinued IV 999 mls/hr Code Status Routine Oth 03/29/25 21:15 Ordered Oxygen Delivery PRN RT 03/29/25 21:17 Active Vital Signs Vital signs: Vital Signs Temperature 98.2 F 03/29/25 10:49 Pulse Rate 100 03/29/25 10:49 Respiratory Rate 20 03/29/25 10:49 Blood Pressure 144/67 H 03/29/25 10:49 Pulse Oximetry (%) 100 03/29/25 10:49 Oxygen Delivery Method Room Air 03/29/25 10:49 Discharge Plan Plan Patient Disposition: Admit Acute Care w/in Hospital Problem List Clinical Impression: Fever, Cellulitis of labia, Anemia MDM Narrative MDM hospital course (for use when minimal MDM required): 49-year-old female patient with significant history of schizophrenia, homelessness, was brought in by EMS for evaluation regarding generalized body weakness. History is very limited, when I asked the patient patient only answer simple question. Patient complaining of feeling very cold and generalized body weakness. Was seen here earlier today and was diagnosed with UTI. Patient was noted to be shivering. No other complaints noted. Patient was noted to be tachycardic heart rate 120, temperature of 103.9, and tachypneic at 22. Sepsis alert was initiated right away Patient's was given IV fluids, Tylenol, IV, IV Zosyn. I did a rectal exam with a female nurse around all the time, and I did not notice any black tarry stool. Tested negative for occult blood Patient's workup is significant for cholelithiasis with no sign of acute cholestasis, chest x-ray no pneumonia, CT scan of the abdomen pelvis showed cholelithiasis. Tested negative for flu COVID. Urinalysis no UTI. Pro-Dru showed 2.11. CBC no leukocytosis except for anemia of 7.2. Total bili was noted to be 1.5 Patient's fever could be secondary to her cellulitis in the labia. I did not notice any sign of foreign years gangrene. There is no sign of Bartholin cyst abscess also. EKG showed sinus tachycardia, ventricular rate of 120 bpm, no ST segment elevation depression noted Spoke with hospitalist, who admitted the patient. Medication Administration(s) Medication Administration History Acetaminophen (Acetaminophen 325 Mg Tablet) 650 mg PO Q6H PRN PRN Reason: Fever >100.4 or pain 1-3 Stop: 04/28/25 21:14 Hydrocodone Bitart/Acetaminophen (Hydrocodone/Apap 5/325 Tablet) 1 tab PO Q4HR PRN PRN Reason: PAIN SCALE 4-6 (Moderate Stop: 04/03/25 21:14 Docusate Sodium (Docusate Sod 100 Mg Capsule) 100 mg PO QDAY [facility]; Protocol Stop: 04/29/25 08:59 Heparin Sodium (Porcine) (Heparin Sod Inj 5000 Unit/Ml Vial) 5,000 unit SC Q12HR JUSTINO Stop: 04/13/25 08:59 Morphine Sulfate (Morphine Sulf Inj 4 Mg/Ml Vial) 1 mg IVP Q4HR PRN PRN Reason: PAIN SCALE 7-10 (Severe Stop: 04/03/25 21:14 Ondansetron HCl (Ondansetron Inj 2 Mg/Ml Inj 2 Ml) 4 mg IVP Q6H PRN; Protocol PRN Reason: NAUSEA OR VOMITING Stop: 04/28/25 21:14 Pantoprazole Sodium (Pantoprazole 40 Mg Tablet) 40 mg PO QDAY [facility] Stop: 04/29/25 08:59 Discontinued Medications Lactated Ringer's (Lactated Ringers) 1,000 mls @ 999 mls/hr IV .Q1H1M ONE Stop: 03/29/25 12:44 Last Infusion: 03/29/25 13:35 Dose: Infused Documented By: Admin: 03/29/25 12:34 Dose: 999 mls/hr Documented By: ED Acetaminophen (Ofirmev Inj) 1,000 mg in 100 mls @ 250 mls/hr IV X1 ONE Stop: 03/29/25 12:07 Last Infusion: 03/29/25 13:05 Dose: Infused Documented By: Admin: 03/29/25 12:41 Dose: 250 mls/hr Documented By: EF Piperacillin/Tazobactam/Dextrose (Zosyn) 3.375 gm in 50 mls @ 100 mls/hr IV X1 ONE; Protocol Stop: 03/29/25 16:21 Last Infusion: 03/29/25 16:33 Dose: Infused Documented By: Admin: 03/29/25 16:03 Dose: 100 mls/hr Documented By: EF Diagnosis Differential Diagnosis ED Complaint MDM: Sepsis, labial cellulitis, homelessness Diagnoses ruled out and/or further discussions: Sepsis, labial cellulitis, homelessness
--- NOTE | 2025-03-29 11:40 | PC.NURSE ---
sepsis alert called
--- NOTE | 2025-03-29 11:45 | XR_ITS ---
Examination: CT abdomen with intravenous contrast CT pelvis with intravenous contrast 2-D coronal reconstructions 2-D sagittal reconstructions Date and time of exam: March 21, 2025, 1502 hours INDICATIONS: Generalized abdominal pain with sepsis today COMPARISON: December 25, 2021. CTDI: vol (mGy) 3.75 DLP: (mGycm) 198 Technique: Multiple axial sections of the abdomen and pelvis have been obtained. 64 slice high-resolution scanner used. 3 mm axial sections have been obtained, post intravenous injection 60 cc Isovue 300 Low dose protocols FINDINGS: Hepatosplenomegaly Fatty infiltration throughout the liver Gallstones Gallbladder wall appears thickened No pancreatic mass No hydronephrosis Abundant stool throughout the colon No pericecal inflammatory change Mild thickening of the urinary bladder wall No abdominal or pelvic abscess IMPRESSION: Hepatosplenomegaly. Fatty filtration throughout the liver Cholelithiasis, recommend hepatobiliary sonography follow-up to exclude cholecystitis No pericecal inflammatory change. No abdominal or pelvic abscess
[2025-03-29 12:19] LABS: Lactate (Lactic Acid) 2.1 mMol/L (0.4-2.0)
[2025-03-29] MEDS: RINGERS LACTATED 1000 ML 1,000 ML 999 ML IV (12:34)
[2025-03-29 12:39] LABS: Partial Thromboplastin Time 25.1 Seconds (22.0-36.0)
[2025-03-29] MEDS: ACETAMINOPHEN IVPB 1,000 MG/100 ML VIAL 250 MG IV (12:41)
[2025-03-29 13:07] LABS: Basophils # (Auto) 0.1 Thou/mm3 (0.0-0.2); Basophils % (Auto) 1 % (0-2.5); Eosinophils # (Auto) 0.1 Thou/mm3 (0.0-0.5); Eosinophils % (Auto) 1 % (0-10); Hematocrit 25.3 % (36.0-46.0); Immature Granulocytes Auto 0.05 Thou/mm3 (0.00-0.00); Lymphocytes # (Auto) 0.7 Thou/mm3 (1.0-4.8); Lymphocytes % (Auto) 7 % (10-50); Mean Corpuscular HGB Conc 28.5 g/dl (31.0-37.0); Mean Corpuscular Hemoglobin 31.7 pg (25.0-35.0); Mean Corpuscular Volume 112 fL (80-100); Monocytes # (Auto) 0.2 Thou/mm3 (0.0-0.8); Monocytes % (Auto) 2 % (0-12); Neutrophils # (Auto) 8.5 Thou/mm3 (1.8-7.7); Neutrophils % (Auto) 89 % (37-80); Nucleated Red Blood Cell # 0.00 Thou/mm3 (0.00-0.00); Nucleated Red Blood Cell % 0 /100 WBC (0); Platelet Count 324 Thou/mm3 (140-440); RDW Standard Deviation 65.8 fL (36.4-46.3); Red Blood Count 2.27 Miln/mm3 (4.00-5.20); White Blood Count 9.6 Thou/mm3 (3.6-11.0)
[2025-03-29 13:13] LABS: Hemoglobin 7.2 g/dL (12.0-16.0)
[2025-03-29 14:11] LABS: Collection Type, Urine Clean Catch
--- NOTE | 2025-03-29 14:12 | PC.NURSE ---
Pt. urinated in bed and cleaned, partial linen change done.
[2025-03-29 14:29] LABS: Alanine Aminotransferase 20 U/L (10-49); Albumin, Serum 3.6 gm/dL (3.5-5.0); Albumin/Globulin Ratio 1.2 (1.2-2.2); Alkaline Phosphatase 225 U/L (46-116); Anion Gap 9 (7-16); Aspartate Amino Transferase 21 U/L (0-34); BUN/Creatinine Ratio 18 Ratio (12-20); Bilirubin,Total 1.5 mg/dL (0.3-1.2); Blood Urea Nitrogen 11 mg/dL (9-23); Calcium 8.2 mg/dL (8.3-10.6); Calcium (Corrected) 8.5 mg/dL (8.5-10.1); Carbon Dioxide 24.6 mMol/L (20.0-31.0); Chloride 103 mMol/L (98-107); Creatinine (Component) 0.6 mg/dL (0.6-1.3); Estimated Creatinine Clearance 73.1 mL/min (>60); Globulin 2.9 gm/dL (2.3-3.5); Glucose 93 mg/dL (74-106); Lipase 25 U/L (12-53); Osmolality,Calculated 273 (275-295); Potassium 3.6 mMol/L (3.4-5.1); Procalcitonin 2.11 ng/ml (0.0-0.49); Sodium 137 mMol/L (136-145); Total Protein 6.5 gm/dL (5.7-8.2); Troponin I < 0.020 ng/mL (0.0-0.045); eGFR > 60 See Note
[2025-03-29 14:37] LABS: Bilirubin,Urine Negative (Negative); Blood,Urine Negative (Negative); Clarity,Urine Clear (Clear/Hazy); Color,Urine Yellow (Lt Yel-Yel); Culture Indicated,Urine Not Indicated; Glucose, Urine Negative (Negative); Ketones,Urine Negative (Negative); Leukocyte Esterase,Urine Negative (Negative); Nitrite,Urine Negative (Negative); PH,Urine 5.5 (5.0-7.0); Protein,Urine Negative (Neg - Trace); RBC,Urine < 1 /hpf (0-3); Specific Gravity,Urine 1.017 (1.001-1.035); Squamous Epithelial Cell,Urine < 1 /hpf (0-5); Urobilinogen,Urine Negative mg/dL (0.0-1.0); WBC,Urine < 1 /hpf (0-5)
[2025-03-29 15:12] LABS: Influenza A Ag Negative; Influenza B Ag Negative
[2025-03-29 15:14] LABS: COVID-19 Antigen (In-House) Negative (Negative)
[2025-03-29 15:16] LABS: Reflex Lactate? Y
[2025-03-29 15:34] LABS: HCG Qualitative,Urine Negative
[2025-03-29 15:43] LABS: Lactic Acid, 3 HR 1.6 mMol/L (0.4-2.0)
--- NOTE | 2025-03-29 15:51 | XR_ITS ---
Examination: Abdomen sonogram, Limited Date and time of exam: March 29, 2025, 1627 hours INDICATIONS: CT examination today gallstones thickened gallbladder wall Technique: Real-time solorzano scale transabdominal sonographic images of the upper abdomen obtained. Findings: Multiple gallstones Gallbladder wall 0.3 cm no edema Common bile duct 0.3 cm Pancreatic head 2.3 cm Liver 14.6 cm fatty infiltration Normal hepatopetal portal venous flow Patent IVC IMPRESSION: Cholelithiasis, negative for cholecystitis Normal common bile duct
[2025-03-29] MEDS: PIPER/TAZO 3.375 GM PREMIX 3.375 GM/50 ML BAG IV (16:03)
[2025-03-29 17:51] LABS: Path Review Blood Smear Sent to Pathologist
[2025-03-29 22:03] LABS: Amphetamine/Methamp Scrn,U Positive (Negative); Barbiturate Screen,Urine Negative (Negative); Benzodiazepines Screen,Urine Negative (Negative); Benzoylecgonine Screen, Ur Negative (Negative); Fentanyl Screen,Urine Negative (Negative); Opiate Screen,Urine Negative (Negative); THC Screen,Urine Negative (Negative)
[2025-03-29 22:35] LABS: Immature Reticulocyte Fraction 36.2 % (3.0-15.9); Reticulocyte % (Auto) 13.4 % (0.5-1.5); Reticulocyte Absolute Auto 295.3 Biln/L (25.0-75.0); Reticulocyte Hgb Content 31.8 pg (28.0-35.0)
[2025-03-30] VITALS (13 sets, daily range): BP systolic 90–120; BP diastolic 50–81; PULSE 72–90; RESP 16–97; TEMP 36.6–37.2; O2SAT 92–100
--- NOTE | 2025-03-30 01:10 | PD.RESHP ---
Documentation for date of: 03/30/25 HPI History of Present Illness History of present illness: 49 year old female with past medical history of meth use and schizophrenia not currently taking medication (risperidone) who presents with urinary discomfort admitted for symptomatic anemia and IV abx for labia majora cellulitis. Found to be meth positive on UDS, patient reports not currently talking risperidone, does not endorse any psychotic symptoms of AH/VH ED Course Summary Vitals: BP 144/67 HR 100 RR 20 T 98.2F O2 sat 100% RA Labs: WBC 9.6 Hgb 7.2 MCV 112 lactic acid 2.1 T Bili 1.5 ALP 225 Procal 2.11 UA yellow, clear completely unremarkable EKG Sinus tachy HR 120 QTc 402 CXR No pneumonia CTAP hepatosplenomegaly, fatty infiltration throughout the liver, cholelithiasis, recommend hepatobiliary sonography follow up to exclude cholecystitis, no pericecal inflammatory changes, non abdominal or pelvic abscess Gallbladder US cholelithiasis, negative for cholecystitis, normal common bile duct Treatment: Zosyn, acetominophen 1000mg LR 1L Upon initial evaluation the patient complains of feeling cold and generalized body weakness. She had come to the ED earlier today and was discharged with antibiotics for a UTI. However she was brought in by ambulance with subjective and fevers and chills. She states she has had dysuria when urinating for a couple of weeks, denies hematuria, hematochezia, hemoptysis. She denies any recent sexual activity. In ED FOBT was negative. She reports she has not been eating well for a few weeks. She requested food, ate a bite of the sandwich and threw the rest of it on the floor. Patient declined water enema. Code: Full Insulin: None Medical Hx: Please see 1-liner above Medications: Risperidone 2mg QD Allergies: NKA Surgical history: Denies Fhx: Noncontributory Living: In an alley Work: No job on Alcohol: Denies Cigarettes/tobacco: 10 years smoking history, currently no longer smoking Recreational drugs: meth, crack, crystal All 12 systems reviewed and were negative except otherwise stated in HPI. Exam Vital Signs Temp Pulse Resp BP Pulse Ox O2 Del Method O2 Flow Rate 98.6 F 73 19 108/58 L 98 Nasal Cannula 2 03/29/25 23:28 03/29/25 23:28 03/29/25 23:28 03/29/25 23:28 03/29/25 23:28 03/29/25 17:19 03/29/25 17:19 Narrative Exam GENERAL APPEARANCE: AOx3. NAD, activity normal for age, well developed/ well nourished, no cyanosis, pallor, or diaphoresis. Bald, wears a large red wig HEENT: Normocephalic atraumatic, no facial trauma, neck is supple. Lids/conjunctiva normal. Mucous membranes moist, nares normal, lips/teeth normal uvula midline without oral pharyngeal erythema, exudate or swelling TMs normal bilaterally. No lymphangitis/lymphedema. CARDIAC: Regular rate and rhythm, S1+S2 heard. No murmurs, rubs, or gallops noted RESPIRATORY: respiratory effort normal, speaks in full sentences, no tripod position, no accessory muscle use. Lungs clear to auscultation without rhonchi, wheezes, rales ABDOMINAL: NBS. Soft, ND/NT. No evidence of fluid wave. No pulsatile masses on exam, rebound tenderness, Selby sign or pain over Mcburney's point. MUSCLES/EXTREMITIES: No abnormal range of motion, no swelling. DERM: Warm, pink and dry. No rashes, dermatoses, petechiae or lesions. NEUROLOGICAL: Speech is clear and appropriate. Normal level of consciousness. Gait and coordination are normal. 5/5 strength in all extremities. PSYCH: Normal mood and affect. Judgement/competence is appropriate. Denies AH/VH at times responding to internal stimuli, able to be redirected. : No CVA tenderness. R labia majora is swollen, erythematous, and indurated, without discharge. No adnexal wall tenderness. Vaginal mucosa is moist without scaling or dryness, no sclerosis noted. Results: Labs 03/30/25 05:26 03/30/25 05:26 Labs: Short CBC 03/29/25 Range/Units 12:05 WBC 9.6 (3.6-11.0) Thou/mm3 Hgb 7.2 L (12.0-16.0) g/dL Hct 25.3 L (36.0-46.0) % Plt Count 324 (140-440) Thou/mm3 BMP 03/29/25 13:21 Sodium 137 Potassium 3.6 Chloride 103 Carbon Dioxide 24.6 BUN 11 Creatinine 0.6 Glucose 93 Calcium 8.2 L Cardiac Enzymes 03/29/25 Range/Units 13:21 Troponin I < 0.020 (0.0-0.045) ng/mL Liver Function 03/29/25 Range/Units 13:21 Total Bilirubin 1.5 H (0.3-1.2) mg/dL AST 21 (0-34) U/L ALT 20 (10-49) U/L Alkaline Phosphatase 225 H (46-116) U/L Albumin 3.6 (3.5-5.0) gm/dL Urine 03/29/25 Range/Units 14:07 Urine Color Yellow (Lt Yel-Yel) Urine Clarity Clear (Clear/Hazy) Urine pH 5.5 (5.0-7.0) Ur Specific Wyatt 1.017 (1.001-1.035) Urine Protein Negative (Neg - Trace) Urine Glucose (UA) Negative (Negative) Quality Measures Quality Measures VTE prophylaxis Medications Home Medications and Allergies Home Medications ?Medication ?Instructions ?Recorded ?Confirmed ?Type risperidone 1 mg tablet 2 mg PO QDAY 03/29/25 03/29/25 History Allergies Allergy/AdvReac Type Severity Reaction Status Date / Time No Known Allergies Allergy Verified 03/29/25 05:24 Visit Medications Acetaminophen (Acetaminophen 325 Mg Tablet) 650 mg PO Q6H PRN PRN Reason: Fever >100.4 or pain 1-3 Stop: 04/28/25 21:14 Hydrocodone Bitart/Acetaminophen (Hydrocodone/Apap 5/325 Tablet) 1 tab PO Q4HR PRN PRN Reason: PAIN SCALE 4-6 (Moderate Stop: 04/03/25 21:14 Docusate Sodium (Docusate Sod 100 Mg Capsule) 100 mg PO QDAY [facility]; Protocol Stop: 04/29/25 08:59 Heparin Sodium (Porcine) (Heparin Sod Inj 5000 Unit/Ml Vial) 5,000 unit SC Q12HR JUSTINO Stop: 04/13/25 08:59 Ceftriaxone Sodium/Dextrose (Rocephin/D5w 1gm Iv Premix) 1 gm in 50 mls @ 100 mls/hr IV QDAY [facility] Stop: 04/06/25 08:59 Morphine Sulfate (Morphine Sulf Inj 4 Mg/Ml Vial) 1 mg IVP Q4HR PRN PRN Reason: PAIN SCALE 7-10 (Severe Stop: 04/03/25 21:14 Ondansetron HCl (Ondansetron Inj 2 Mg/Ml Inj 2 Ml) 4 mg IVP Q6H PRN; Protocol PRN Reason: NAUSEA OR VOMITING Stop: 04/28/25 21:14 Pantoprazole Sodium (Pantoprazole 40 Mg Tablet) 40 mg PO QDAY JUSTINO Stop: 04/29/25 08:59 Discontinued Medications Lactated Ringer's (Lactated Ringers) 1,000 mls @ 999 mls/hr IV .Q1H1M ONE Stop: 03/29/25 12:44 Last Infusion: 03/29/25 13:35 Dose: Infused Acetaminophen (Ofirmev Inj) 1,000 mg in 100 mls @ 250 mls/hr IV X1 ONE Stop: 03/29/25 12:07 Last Infusion: 03/29/25 13:05 Dose: Infused Piperacillin/Tazobactam/Dextrose (Zosyn) 3.375 gm in 50 mls @ 100 mls/hr IV X1 ONE; Protocol Stop: 03/29/25 16:21 Last Infusion: 03/29/25 16:33 Dose: Infused Influenza Virus Vaccine Quadrival (Influenza Virus 0.5 Ml Syringe 2024-) 0.5 ml IMi .ONCE ONE Stop: 03/29/25 23:51 Last Admin: 03/30/25 00:04 Dose: 0.5 ml Assessment & Plan Plan 49 year old female with past medical history of meth use and schizophrenia not currently taking medication (risperidone) who presents with urinary discomfort admitted for symptomatic anemia and IV abx for labia majora cellulitis. Found to be meth positive on UDS, patient reports not currently talking risperidone, does not endorse any psychotic symptoms of AH/VH. #Symptomatic Macrocytic Anemia Patient has complaints of feeling cold and generalized body weakness, with poor nail bed pallor and mucosal pallor. She has not been eating regularly for the last few weeks. Hgb 7.2 MCV 112. denies hematuria, hematochezia, hemoptysis. In ED FOBT was negative. She reports she has not been eating well for a few weeks. Most likely due to poor PO intake and vitamin deficiency. Plan: -FUP B12 -FUP folate -FUP reticulocyte count -FUP TSH and T4 -Consider blood transfusion pending AM CBC -Consider GI consult for blood loss anemia if CBC worsens or signs of blood in stool #R labia majora cellulitis ED earlier today and was discharged with antibiotics for a UTI. However she was brought in by ambulance with subjective and fevers and chills. She states she has had dysuria when urinating for a couple of weeks, denies hematuria, hematochezia, hemoptysis. She denies any recent sexual activity. On physcial exam no CVA tenderness. R labia majora is swollen, erythematous, and indurated, without discharge. No adnexal wall tenderness. Vaginal mucosa is moist without scaling or dryness, no sclerosis noted. Patient has poor medication compliance. UA is completely unremarkable. Plan: -FUP ANA, syphillis, wet prep, GC cx -FUP blood cx:___ -FUP wound cx:___ -Planning Analyst consulted for concern for malignancy -Ceftriaxone 1g IV QD (03/30 - #Schizophrenia Not taking medication because she is not following up with psychiatrist. No active psychotic symptoms at the moment Plan: -Please consider restarting risperidone 2mg QD PO #Meth use #Homelessness Patient testing positive for methamphetamine use at every visit Counseled regarding devastating effects of recreational drug use Social referral Health Maintenance: Code status: Full DVT prophylaxis: Heparin GI prophylaxis: Protonix Diet: regular [place]: None Lines: PIV Supplemental O2: NC prn Disposition: Med surg for symptomatic macrocytic anemia Patient seen and reviewed with attending Dr. Ramirez. Note written by Rubén Macdonald MD PGY-1 Attending Provider Attestation/Addendum After examination of the patient and review of the clinical data I feel that this patient needs admission to the hospital for further treatment/evaluation. Plan of care discussed with patient and is in agreement. I Rashmi Ramirez MD, attest that I was physically present for hargrove portions of evaluation, and examined patient, labs and imagings and plan of care were discussed with IM residents team, and I agree with the findings and plans documented above.
[2025-03-30 06:24] LABS: Basophils # (Auto) 0.1 Thou/mm3 (0.0-0.2); Basophils % (Auto) 1 % (0-2.5); Eosinophils # (Auto) 0.2 Thou/mm3 (0.0-0.5); Eosinophils % (Auto) 4 % (0-10); Hematocrit 26.5 % (36.0-46.0); Immature Granulocytes Auto 0.02 Thou/mm3 (0.00-0.00); Lymphocytes # (Auto) 1.6 Thou/mm3 (1.0-4.8); Lymphocytes % (Auto) 25 % (10-50); Mean Corpuscular HGB Conc 30.9 g/dl (31.0-37.0); Mean Corpuscular Hemoglobin 31.4 pg (25.0-35.0); Mean Corpuscular Volume 102 fL (80-100); Monocytes # (Auto) 0.7 Thou/mm3 (0.0-0.8); Monocytes % (Auto) 11 % (0-12); Neutrophils # (Auto) 3.7 Thou/mm3 (1.8-7.7); Neutrophils % (Auto) 60 % (37-80); Nucleated Red Blood Cell # 0.00 Thou/mm3 (0.00-0.00); Nucleated Red Blood Cell % 0 /100 WBC (0); Platelet Count 214 Thou/mm3 (140-440); RDW Standard Deviation 81.6 fL (36.4-46.3); Red Blood Count 2.61 Miln/mm3 (4.00-5.20); White Blood Count 6.2 Thou/mm3 (3.6-11.0)
[2025-03-30 06:28] LABS: Hemoglobin 8.2 g/dL (12.0-16.0)
[2025-03-30 06:57] LABS: Alanine Aminotransferase 16 U/L (10-49); Albumin, Serum 3.5 gm/dL (3.5-5.0); Albumin/Globulin Ratio 1.3 (1.2-2.2); Alkaline Phosphatase 201 U/L (46-116); Anion Gap 7 (7-16); Aspartate Amino Transferase 19 U/L (0-34); BUN/Creatinine Ratio 24 Ratio (12-20); Bilirubin,Total 2.3 mg/dL (0.3-1.2); Blood Urea Nitrogen 12 mg/dL (9-23); Calcium 8.4 mg/dL (8.3-10.6); Calcium (Corrected) 8.8 mg/dL (8.5-10.1); Carbon Dioxide 27.6 mMol/L (20.0-31.0); Chloride 106 mMol/L (98-107); Creatinine (Component) 0.5 mg/dL (0.6-1.3); Estimated Creatinine Clearance 96.5 mL/min (>60); Free T4 (Free Thyroxine) 1.03 ng/dL (0.89-1.76); Globulin 2.8 gm/dL (2.3-3.5); Glucose 120 mg/dL (74-106); Magnesium 2.2 mg/dL (1.6-2.6); Osmolality,Calculated 281 (275-295); Phosphorous 3.3 mg/dL (2.4-5.1); Potassium 3.8 mMol/L (3.4-5.1); Sodium 141 mMol/L (136-145); Thyroid Stimulating Hormone 1.68 uIU/mL (0.55-4.78); Total Protein 6.3 gm/dL (5.7-8.2); eGFR > 60 See Note
[2025-03-30] MEDS: PANTOPRAZOLE 40 MG TABLET PO (08:11)
[2025-03-30] MEDS: HEPARIN SOD INJ 5000 UNIT/ML VIAL SC ×2 (08:11→21:32)
[2025-03-30] MEDS: DOCUSATE SOD 100 MG CAPSULE PO (08:11)
[2025-03-30] MEDS: cefTRIAXone/D5w 1gm IV premix 1 GM/50 ML BAG IV (08:11)
[2025-03-30 08:25] LABS: Syphilis Reactive (Nonreactive)
[2025-03-30 08:27] LABS: MHATP/TP-PA* See Sep Rpt
--- NOTE | 2025-03-30 08:30 | ECHO_ITS ---
Patient Info Name: Elmo Wilburn Age: 49 years : 1975 Gender: Female Ht: 157 cm Wt: 46 kg BSA: 1.41 m2 BP: 134 / 84 mmHg HR: 95 bpm Exam Date: 03/31/2025 2:07 PM Admit Date: 03/29/2025 Site: [facility] Room Number: [id number] Patient Status: I Exam Type: CA echo doppler complete Acid Painter: Sophie Jaime Ordering Physician: Andrea Delaney Study Info Indications Meth use - Primary Location: [id number] Left Ventricular Outflow Tract Name Value Normal LVOT 2D LVOT Diameter 1.3 cm LVOT Doppler LVOT Peak Velocity 135 cm/s LVOT Mean Gradient 3 mmHg LVOT VTI 25 cm LVOT VTI/AV VTI Ratio 0.9 LVOT Stroke Volume 33 ml Pulmonic Valve Name Value Normal PV Doppler PV Peak Velocity 67 cm/s Mitral Valve Name Value Normal MV Doppler MV Decel [place] 447 cm/s2 MV PHT 54 ms MV Area (PHT) 4.1 cm2 4.0-5.0 MV Diastolic Function MV E Peak Velocity 83 cm/s MV A Peak Velocity 63 cm/s MV E/A 1.3 MV Annular TDI MV Septal e' Velocity 7.3 cm/s MV E/e' (Septal) 11.4 MV Lateral e' Velocity 13.2 cm/s MV E/e' (Lateral) 6.3 MV e' Average 10.25 cm/s MV E/e' (Average) 8.9 Tricuspid Valve Name Value Normal TV Regurgitation Doppler TR Peak Velocity 105 cm/s Estimated PAP/RSVP RA Pressure 3 mmHg <=5 PA Systolic Pressure 7 mmHg <36 RV Systolic Pressure 7 mmHg <36 TV Annular TDI TV Lateral Terri s' Velocity 12.5 cm/s >=9.5 Aortic Valve Name Value Normal AV 2D/MM AV Cusp Sep (MM) 1.2 cm AV Doppler AV Peak Velocity 153 cm/s AV Mean Gradient 5 mmHg AV VTI 29 cm AV Area (Cont Eq VTI) 1.1 cm2 >=3.0 AV Area (Cont Eq Yifan) 1.2 cm2 AV DI (Yifan) 0.88 AV Regurgitation 2D LVOT Area 1.3 cm2 Ventricles Name Value Normal LV Dimensions 2D/MM IVS Diastolic Thickness (2D) 0.7 cm 0.6-0.9 LVID Diastole (2D) 4.1 cm 3.8-5.2 LVIW Diastolic Thickness (2D) 0.6 cm 0.6-0.9 LVID Systole (2D) 2.7 cm 2.2-3.5 LVOT Diameter 1.3 cm LV Mass (2D Cubed) 74.27 g 67.00-162.00 LV Mass Index (2D Cubed) 53 g/m2 43-95 Relative Wall Thickness (2D) 0.29 <=0.42 IVS/LVIW Diastolic Thickness (2D) 1.17 0.00-1.50 LV Fractional Shortening/Ejection Fraction 2D/MM LV Fractional Shortening (2D) 34 % 27-45 LV EF (2D Teichholz) 64 % RV Dimensions 2D/MM TV Lateral Terri s' Velocity 12.5 cm/s >=9.5 Atria Name Value Normal LA Dimensions LA Volume (4C A-L) 35 ml LA Volume (BP A-L) 43 ml Left Ventricle Left ventricular chamber dimension is normal. Left ventricular systolic function is normal with visually estimated ejection fraction of 60-65%. There is concentric hypertrophy noted in the left ventricle. Left ventricular segmental wall motion is normal. There is normal diastolic function in the left ventricle. Right Ventricle Right ventricular chamber dimension is normal. Right ventricular systolic function is normal. Left Atrium Left atrial chamber dimension is mildly enlarged. Right Atrium Right atrial chamber dimension is normal. Aortic Valve The aortic valve is trileaflet. There is no aortic valve sclerosis. There is no aortic valve stenosis with a peak velocity of 153 cm/s, mean gradient of 5 mmHg, and aortic valve area of 1.1 cm2. There is no aortic valve regurgitation. Pulmonic Valve The pulmonic valve is normal. There is no pulmonic valve stenosis. There is no pulmonic regurgitation. Mitral Valve The mitral valve has normal leaflets. There is no mitral valve stenosis. There is trace mitral valve regurgitation. Tricuspid Valve The tricuspid valve leaflets are normal. There is no tricuspid valve stenosis. There is trace tricuspid valve regurgitation. No pulmonary hypertension, estimated pulmonary arterial systolic pressure is 7 mmHg and systemic blood pressure of 134 mmHg in systole. Pericardium/Pleural The pericardium appears normal. There is no pericardial effusion. No pleural effusion visualized. Inferior Vena Cava Normal inferior vena cava with >50% collapse upon inspiration consistent with normal right atrial pressure, 3 mmHg. Aorta The aortic measurements are indexed to age and body surface area. The aortic root at the sinus of Valsalva is not well visualized. The prox ascending aorta is not well visualized. Summary 1. Left ventricle size is normal and systolic function is normal. Estimated ejection fraction is 60-65%. There is normal diastolic function. 2. Right ventricle chamber size is normal and systolic function is normal. Estimated RVSP is 7 mmHg. 3. There is trace mitral valve regurgitation. 4. There is trace to mild tricuspid valve regurgitation. 5. Normal IVC with estimated RA pressure 3 mmHg. Report Signatures Finalized by Andrey Wetzel on 04/01/2025 02:33 AM
[2025-03-30 09:42] LABS: Bilirubin,Direct 0.7 mg/dL (0.0-0.3); LDH (Lactate Dehydrogenase) 191 U/L (120-246)
[2025-03-30 09:47] LABS: Ferritin 197 ng/mL (7.3-270.7); Iron 61 mcg/dL (50-170); Percent Iron Saturation 23 % (20-55); Total Iron Binding Capacity 264 mcg/dL (250-425); Unsaturated Iron Binding 203 (225-295)
[2025-03-30 12:49] LABS: HIV (1&2) Antibody Rapid Non-Reactive
--- NOTE | 2025-03-30 13:56 | ESPR_ITS ---
Documentation for date of: 03/30/25 Subjective Subjective Interval history: Patient is seen and examined at bedside. Overnight admitted in view of a labial cellulitis versus early cervicitis. Tested positive for syphilis. Pending final confirmatory test which were sent Noted to have macrocytic anemia. Iron panel is within normal limits, pending B12 and folate levels HIV came back negative. Pending hepatitis panel LDH, Jackeline were sent for further workup of anemia. Peripheral smear is sent, pending. Reticulocyte count is elevated and appropriate to the anemia Consulted search engine marketing strategist, Dr Leos and she recommended doxycycline 100 mg twice daily for 7 days Echocardiogram is ordered in view of chronic meth abuse Exam Vital Signs Temp Pulse Resp BP Pulse Ox O2 Del Method O2 Flow Rate 98.2 F 86 16 114/65 97 Nasal Cannula 2 03/30/25 11:58 03/30/25 11:58 03/30/25 11:58 03/30/25 11:58 03/30/25 11:58 03/30/25 11:58 03/30/25 11:58 Narrative Exam General: Awake. Looks chronically malnourished HEENT: Normocephalic, atraumatic, mucous membranes moist. Heart: Regular rate and rhythm, no murmurs. Lungs: Clear to auscultation with no wheezing or crackles. Abdomen: Soft, nondistended, nontender, positive bowel sounds. ?No guarding or rebound tenderness. Neurologic: Alert and oriented x3, no gross neurological deficit, and patient able to move all 4 extremities. Extremities: No edema. Skin: No rash or ecchymoses. Objective Labs 03/31/25 04:48 03/31/25 04:48 Labs: Laboratory Results - last 24 hr 03/29/25 03/29/25 03/29/25 12:05 13:21 14:07 WBC RBC Hgb Hct MCV MCH MCHC RDW Std Deviation Plt Count Neut % (Auto) Lymph % (Auto) Coal % (Auto) Eos % (Auto) Baso % (Auto) Neut # (Auto) Lymph # (Auto) Coal # (Auto) Eos # (Auto) Baso # (Auto) Immature Gran # (Auto) Absolute Nucleated RBC Immature Gran % Nucleated RBC % Smear Path Review Sent to Pathologist Retic Count (auto) 13.4 H Absolute Retic 295.3 H Immature Retic Fraction 36.2 H Retic Hgb Content CHr 31.8 Sodium 137 Potassium 3.6 Chloride 103 Carbon Dioxide 24.6 Anion Gap 9 BUN 11 Creatinine 0.6 Estim Creat Clear Calc 73.1 eGFR > 60 BUN/Creatinine Ratio 18 Glucose 93 Calculated Osmolality 273 L Lactic Acid Calcium 8.2 L Corrected Calcium 8.5 Phosphorus Magnesium Iron TIBC Iron Saturation Unsat Iron Binding Ferritin Total Bilirubin 1.5 H Direct Bilirubin AST 21 ALT 20 Alkaline Phosphatase 225 H Lactate Dehydrogenase Troponin I < 0.020 Total Protein 6.5 Albumin 3.6 Globulin 2.9 Albumin/Globulin Ratio 1.2 Lipase 25 Procalcitonin 2.11 H TSH Free T4 Ur Collection Type Clean Catch Urine Color Yellow Urine Clarity Clear Urine pH 5.5 Ur Specific [place] 1.017 Urine Protein Negative Urine Glucose (UA) Negative Urine Ketones Negative Urine Blood Negative Urine Nitrite Negative Urine Bilirubin Negative Urine Urobilinogen (Auto) Negative Ur Leukocyte Esterase Negative Urine RBC < 1 Urine WBC < 1 Ur Squamous Epith Cells < 1 Urine Bacteria None Ur Culture Indicated? Not Indicated Urine HCG, Qual Negative Urine Opiates Screen Negative Urine Fentanyl Screen Negative Ur Barbiturates Screen Negative U Amphetamin/Meth Scrn Positive A U Benzodiazepines Scrn Negative U Cocaine Metab Screen Negative U Marijuana (THC) Screen Negative Syphilis Serology HIV 1&2 Antibody Rapid Influenza A (Rapid) Influenza B (Rapid) SARS-CoV-2 Ag (Rapid) Blood Type Antibody Screen Crossmatch Blood Bank Wristband ID 03/29/25 03/29/25 03/29/25 14:15 15:32 21:35 WBC RBC Hgb Hct MCV MCH MCHC RDW Std Deviation Plt Count Neut % (Auto) Lymph % (Auto) Coal % (Auto) Eos % (Auto) Baso % (Auto) Neut # (Auto) Lymph # (Auto) Coal # (Auto) Eos # (Auto) Baso # (Auto) Immature Gran # (Auto) Absolute Nucleated RBC Immature Gran % Nucleated RBC % Smear Path Review Retic Count (auto) Absolute Retic Immature Retic Fraction Retic Hgb Content CHr Sodium Potassium Chloride Carbon Dioxide Anion Gap BUN Creatinine Estim Creat Clear Calc eGFR BUN/Creatinine Ratio Glucose Calculated Osmolality Lactic Acid 1.6 Calcium Corrected Calcium Phosphorus Magnesium Iron TIBC Iron Saturation Unsat Iron Binding Ferritin Total Bilirubin Direct Bilirubin AST ALT Alkaline Phosphatase Lactate Dehydrogenase Troponin I Total Protein Albumin Globulin Albumin/Globulin Ratio Lipase Procalcitonin TSH Free T4 Ur Collection Type Urine Color Urine Clarity Urine pH Ur Specific [place] Urine Protein Urine Glucose (UA) Urine Ketones Urine Blood Urine Nitrite Urine Bilirubin Urine Urobilinogen (Auto) Ur Leukocyte Esterase Urine RBC Urine WBC Ur Squamous Epith Cells Urine Bacteria Ur Culture Indicated? Urine HCG, Qual Urine Opiates Screen Urine Fentanyl Screen Ur Barbiturates Screen U Amphetamin/Meth Scrn U Benzodiazepines Scrn U Cocaine Metab Screen U Marijuana (THC) Screen Syphilis Serology HIV 1&2 Antibody Rapid Influenza A (Rapid) Negative Influenza B (Rapid) Negative SARS-CoV-2 Ag (Rapid) Negative Blood Type A Positive Antibody Screen NEGATIVE Crossmatch See Detail Blood Bank Wristband ID Yes 03/30/25 03/30/25 05:26 08:57 WBC 6.2 RBC 2.61 L Hgb 8.2 L Hct 26.5 L MCV 102 H MCH 31.4 MCHC 30.9 L RDW Std Deviation 81.6 H Plt Count 214 D Neut % (Auto) 60 Lymph % (Auto) 25 Coal % (Auto) 11 Eos % (Auto) 4 Baso % (Auto) 1 Neut # (Auto) 3.7 Lymph # (Auto) 1.6 Coal # (Auto) 0.7 Eos # (Auto) 0.2 Baso # (Auto) 0.1 Immature Gran # (Auto) 0.02 H Absolute Nucleated RBC 0.00 Immature Gran % 0 Nucleated RBC % 0 Smear Path Review Retic Count (auto) Absolute Retic Immature Retic Fraction Retic Hgb Content CHr Sodium 141 Potassium 3.8 Chloride 106 Carbon Dioxide 27.6 Anion Gap 7 BUN 12 Creatinine 0.5 L Estim Creat Clear Calc 96.5 eGFR > 60 BUN/Creatinine Ratio 24 H Glucose 120 H Calculated Osmolality 281 Lactic Acid Calcium 8.4 Corrected Calcium 8.8 Phosphorus 3.3 Magnesium 2.2 Iron 61 TIBC 264 Iron Saturation 23 Unsat Iron Binding 203 L Ferritin 197 Total Bilirubin 2.3 H D Direct Bilirubin 0.7 H AST 19 ALT 16 Alkaline Phosphatase 201 H D Lactate Dehydrogenase 191 Troponin I Total Protein 6.3 Albumin 3.5 Globulin 2.8 Albumin/Globulin Ratio 1.3 Lipase Procalcitonin TSH 1.68 Free T4 1.03 Ur Collection Type Urine Color Urine Clarity Urine pH Ur Specific [place] Urine Protein Urine Glucose (UA) Urine Ketones Urine Blood Urine Nitrite Urine Bilirubin Urine Urobilinogen (Auto) Ur Leukocyte Esterase Urine RBC Urine WBC Ur Squamous Epith Cells Urine Bacteria Ur Culture Indicated? Urine HCG, Qual Urine Opiates Screen Urine Fentanyl Screen Ur Barbiturates Screen U Amphetamin/Meth Scrn U Benzodiazepines Scrn U Cocaine Metab Screen U Marijuana (THC) Screen Syphilis Serology Reactive A D HIV 1&2 Antibody Rapid Non-Reactive Influenza A (Rapid) Influenza B (Rapid) SARS-CoV-2 Ag (Rapid) Blood Type Antibody Screen Crossmatch Blood Bank Wristband ID Quality Measures Quality Measures none Assessment & Plan Assessment Current Active Medications: Generic Name Dose Route Start Last Admin Trade Name Freq PRN Reason Stop Dose Admin Acetaminophen 650 mg 03/29/25 21:15 Acetaminophen 325 Mg Tablet PO 04/28/25 21:14 Q6H PRN Fever >100.4 or pain 1-3 Hydrocodone Bitart/Acetaminophen 1 tab 03/29/25 21:15 Hydrocodone/Apap 5/325 Tablet PO 04/03/25 21:14 Q4HR PRN PAIN SCALE 4-6 (Moderate Docusate Sodium 100 mg 03/30/25 09:00 03/30/25 08:11 Docusate Sod 100 Mg Capsule PO 04/29/25 08:59 100 mg QDAY JUSTINO Administration Protocol Heparin Sodium (Porcine) 5,000 unit 03/30/25 09:00 03/30/25 08:11 Heparin Sod Inj 5000 Unit/Ml Vial SC 04/13/25 08:59 5,000 unit Q12HR JUSTINO Administration Ceftriaxone Sodium/Dextrose 1 gm in 50 mls @ 100 mls/hr 03/30/25 09:00 03/30/25 08:11 Rocephin/D5w 1gm Iv Premix IV 04/06/25 08:59 100 mls/hr QDAY JUSTINO Administration Morphine Sulfate 1 mg 03/29/25 21:15 Morphine Sulf Inj 4 Mg/Ml Vial IVP 04/03/25 21:14 Q4HR PRN PAIN SCALE 7-10 (Severe Ondansetron HCl 4 mg 03/29/25 21:15 Ondansetron Inj 2 Mg/Ml Inj 2 Ml IVP 04/28/25 21:14 Q6H PRN NAUSEA OR VOMITING Protocol Pantoprazole Sodium 40 mg 03/30/25 09:00 03/30/25 08:11 Pantoprazole 40 Mg Tablet PO 04/29/25 08:59 40 mg QDAY JUSTINO Administration Plan 49 year old female with past medical history of meth use and schizophrenia not currently taking medication (risperidone) who presents with urinary discomfort admitted for symptomatic anemia and IV abx for labia majora cellulitis. Found to be meth positive on UDS, patient reports not currently talking risperidone, does not endorse any psychotic symptoms of AH/VH. #Symptomatic Macrocytic Anemia Patient has complaints of feeling cold and generalized body weakness, with poor nail bed pallor and mucosal pallor. She has not been eating regularly for the last few weeks. Hgb 7.2 MCV 112. denies hematuria, hematochezia, hemoptysis. In ED FOBT was negative. She reports she has not been eating well for a few weeks. Most likely due to poor PO intake and vitamin deficiency. -Reticulocyte count is appropriately elevated for the anemia - TSH and free T4 within normal limits - Iron panel is within normal limits Plan: -FUP B12 -FUP folate -Consider blood transfusion if hemoglobin less than 7 -Consider GI consult for blood loss anemia if CBC worsens or signs of blood in stool #R labia majora cellulitis-early cervicitis #Syphilis ED earlier today and was discharged with antibiotics for a UTI. However she was brought in by ambulance with subjective and fevers and chills. She states she has had dysuria when urinating for a couple of weeks, denies hematuria, hematochezia, hemoptysis. She denies any recent sexual activity. On physcial exam no CVA tenderness. R labia majora is swollen, erythematous, and indurated, without discharge. No adnexal wall tenderness. Vaginal mucosa is moist without scaling or dryness, no sclerosis noted. Patient has poor medication compliance. UA is completely unremarkable. Plan: -Pending final confirmation test for syphilis, will give 1 dose of penicillin at the time of discharge -Follow-up with HIV, hepatitis panel -FUP ANA, wet prep, GC cx -FUP blood cx:___ -FUP wound cx:___ -Ceftriaxone 1g IV QD (03/30 - -consulted Dr. Leos and recommended to add doxycycline 100 mg twice daily for 7 days #Hx of Schizophrenia Not taking medication because she is not following up with psychiatrist. No active psychotic symptoms at the moment Plan: -Please consider restarting risperidone 2mg QD PO Health Maintenance: Code status: Full DVT prophylaxis: Heparin GI prophylaxis: Protonix Diet: regular [place]: None Lines: PIV Supplemental O2: NC prn Disposition: Med surg for symptomatic macrocytic anemia Patient plan of care was discussed with the attending physician, Dr. Colin Delaney, PGY2 Attending Provider Attestation/Addendum I have examined the patient, reviewed labs and imaging findings, discussed the case with the resident(s), and reviewed entered orders. I agree with the plan of care as outlined in this note, with these additional summaries/recommendations: Patient seen at bedside. Patient was admitted overnight for labia cellulitis which is fairly extensive with swelling, erythema, slight induration although no discharge. Continue IV antibiotics. Blood cultures show no growth at 24 hours and we will await 48-hour ed before patient can be safely discharged. Patient's syphilis serology returned reactive. ATP/TP?PA pending at this time. Patient denies previously receiving treatment for syphilis in the past although she is a relatively poor historian. She denies noticing any ulcers in the past. Nonetheless we will give patient a shot of penicillin G benzathine 2,400,000 IM prior to discharge. On admission patient was found to have hepatosplenomegaly and fatty filtration throughout the liver. No evidence of cirrhosis at this time although there is some synthetic liver dysfunction with hyperbilirubinemia. We will avoid hepatotoxic agents and patient should follow- up with PCP for continued surveillance and management. Urine toxicology positive for methamphetamines and social work instructor referral for resources. Patient appears to take risperidone although she reports she has not taken in a while and not following a psychiatrist. We will hold for now and resume on discharge. Patient has underlying macrocytic anemia and order vitamin B12/folate for a.m. lab draw. Patient updated on the plan and in agreement. All questions answered satisfaction. Please see residents note for additional details and management. Dr. Colin MD
--- NOTE | 2025-03-30 15:15 | PD.GYNCONS ---
BICYCLE I ASSEMBLER HPI Data of Consult Patient: new to practice Consult date: 03/30/25 Requesting Physician: Rashmi Ramirez MD Primary Care Provider: Bryn Little MD Consult Narrative Reason for consult: other (Labial abscess) History of present illness: 49 year old female with past medical history of meth use and schizophrenia not currently taking medication (risperidone) who presents with urinary discomfort admitted for symptomatic anemia and IV abx for labia majora cellulitis. Found to be meth positive on UDS, patient reports not currently talking risperidone, denies any psychotic symptoms or auditory hallucinations. No visual hallucinations. ED Course Summary Vitals: BP 144/67 HR 100 RR 20 T 98.2F O2 sat 100% RA Labs: WBC 9.6 Hgb 7.2 MCV 112 lactic acid 2.1 T Bili 1.5 ALP 225 Procal 2.11 UA yellow, clear completely unremarkable EKG Sinus tachy HR 120 QTc 402 CXR No pneumonia CTAP hepatosplenomegaly, fatty infiltration throughout the liver, cholelithiasis, recommend hepatobiliary sonography follow up to exclude cholecystitis, no pericecal inflammatory changes, non abdominal or pelvic abscess Gallbladder US cholelithiasis, negative for cholecystitis, normal common bile duct Treatment: Zosyn, acetominophen 1000mg LR 1L Upon initial evaluation the ER the patient complained of feeling cold and generalized body weakness. She had come to the ED earlier yesterday and was discharged with antibiotics for a UTI. However she was brought in by ambulance with subjective and fevers and chills. She states she has had dysuria when urinating for a couple of weeks, denies hematuria, hematochezia, hemoptysis. She denies any recent sexual activity. In ED FOBT was negative. She reports she has not been eating well for a few weeks. She requested food, ate a bite of the sandwich and threw the rest of it on the floor. Patient declined water enema. Code: Full Medications: Risperidone 2mg QD Allergies: NKA Surgical history: History of x 2 with tubal ligation per history Living: Currently homeless. Work: No job/ on SS Alcohol: Denies Cigarettes/tobacco: 10 years smoking history, currently no longer smoking Recreational drugs: meth, crack, cryst. A Networking Specialist consult was put in the computer overnight for management of her labial abscess. On bedside evaluation this afternoon, the patient is alert and answering questions. She points to her labia and said it hurts and it is difficult to walk . She asked whether she will be staying in the hospital couple of days. She is eating Jell-O when I came in the room has 4-5 containers of empty Jell-O and pudding containers at bedside. A speculum exam was performed and cultures obtained for BV, yeast and Trich cc:: cc: Rashmi Ramirez MD Meds Home Medications and Allergies Home Medications ?Medication ?Instructions ?Recorded ?Confirmed ?Type risperidone 1 mg tablet 2 mg PO QDAY 03/29/25 03/29/25 History Allergies Allergy/AdvReac Type Severity Reaction Status Date / Time No Known Allergies Allergy Verified 03/29/25 05:24 Exam - BICYCLE I ASSEMBLER Vital Signs Temp Pulse Resp BP Pulse Ox O2 Del Method O2 Flow Rate 98.2 F 86 16 114/65 97 Nasal Cannula 2 03/30/25 11:58 03/30/25 11:58 03/30/25 11:58 03/30/25 11:58 03/30/25 11:58 03/30/25 11:58 03/30/25 11:58 Narrative Exam Patient is alert and answering questions. She is cooperative. She was able to verbally consent for a speculum exam and external pelvic exam. Constitutional Constitutional: cachectic and chronically ill appearing Comments: Patient appears much older than stated age. Routine HEENT Exam Comments: Patient is missing multiple teeth Routine Abdominal Exam Abdominal: Present soft Routine Exam External: Present normal urethra appearance, vulvar erythema and vulvar tenderness Genitals image:  1. Right labia majora cellulitis, erythematous and tender. No discrete abscess. Not able to be drained. Perineal: Present erythema, induration and tenderness Comments: A Speculum exam was performed on a bedpan. Patient's vagina is atrophic and her tissue appears pale ,postmenopausal and thin. She tolerates a speculum exam up to a point, but only part of her cervix could be visualized. The patient did not tolerate opening the speculum to its widest dimension and positioning it to visualize her cervix secondary to her labial cellulitis and extreme discomfort. The portion of her cervix I could visualize appeared grossly normal and atrophic. She has a small amount of yellow discharge present with no discrete odor. BICYCLE I ASSEMBLER - Results Labs 03/30/25 05:26 03/30/25 05:26 Labs: Short CBC 03/30/25 Range/Units 05:26 WBC 6.2 (3.6-11.0) Thou/mm3 Hgb 8.2 L (12.0-16.0) g/dL Hct 26.5 L (36.0-46.0) % Plt Count 214 D (140-440) Thou/mm3 BMP 03/30/25 05:26 Sodium 141 Potassium 3.8 Chloride 106 Carbon Dioxide 27.6 BUN 12 Creatinine 0.5 L Glucose 120 H Calcium 8.4 Liver Function 03/30/25 03/30/25 Range/Units 05:26 08:57 Total Bilirubin 2.3 H D (0.3-1.2) mg/dL Direct Bilirubin 0.7 H (0.0-0.3) mg/dL AST 19 (0-34) U/L ALT 16 (10-49) U/L Alkaline Phosphatase 201 H D (46-116) U/L Albumin 3.5 (3.5-5.0) gm/dL Assessment and Plan Assessment and plan (1) Cellulitis of labia: Status: Acute Assessment and plan: Would recommend adding doxycycline 100 twice daily x 7 days in case this is an MRSA cellulitis. This would also treat an early cervicitis or endometritis. She has been positive for trichomoniasis in the past and if so treatment is Flagyl. Will await ANA prep. Can add lidocaine jelly topically for pain. No surgical treatment needed at this time. (2) Schizophrenia: Status: Acute (3) Mental health disorder: Status: Acute (2) Schizophrenia Qualifiers: Schizophrenia type: unspecified Qualified Code(s): F20.9 - Schizophrenia, unspecified
[2025-03-30] MEDS: DOXYCYCLINE 100 MG TABLET PO (21:31)
[2025-03-31] VITALS: BP 128/86; PULSE 85; RESP 16; TEMP 36.9; O2SAT 93
[2025-03-31 04:00] VITALS: BP 134/84; PULSE 96; RESP 19; TEMP 37.1; O2SAT 94
[2025-03-31 05:39] LABS: Basophils # (Auto) 0.1 Thou/mm3 (0.0-0.2); Basophils % (Auto) 1 % (0-2.5); Eosinophils # (Auto) 0.5 Thou/mm3 (0.0-0.5); Eosinophils % (Auto) 7 % (0-10); Hematocrit 30.9 % (36.0-46.0); Hemoglobin 9.4 g/dL (12.0-16.0); Immature Granulocytes Auto 0.04 Thou/mm3 (0.00-0.00); Lymphocytes # (Auto) 1.4 Thou/mm3 (1.0-4.8); Lymphocytes % (Auto) 21 % (10-50); Mean Corpuscular HGB Conc 30.4 g/dl (31.0-37.0); Mean Corpuscular Hemoglobin 30.5 pg (25.0-35.0); Mean Corpuscular Volume 100 fL (80-100); Monocytes # (Auto) 0.7 Thou/mm3 (0.0-0.8); Monocytes % (Auto) 11 % (0-12); Neutrophils # (Auto) 3.8 Thou/mm3 (1.8-7.7); Neutrophils % (Auto) 59 % (37-80); Nucleated Red Blood Cell # 0.00 Thou/mm3 (0.00-0.00); Nucleated Red Blood Cell % 0 /100 WBC (0); Platelet Count 281 Thou/mm3 (140-440); RDW Standard Deviation 76.9 fL (36.4-46.3); Red Blood Count 3.08 Miln/mm3 (4.00-5.20); White Blood Count 6.5 Thou/mm3 (3.6-11.0)
[2025-03-31 05:59] LABS: Alanine Aminotransferase 21 U/L (10-49); Albumin, Serum 3.8 gm/dL (3.5-5.0); Albumin/Globulin Ratio 1.2 (1.2-2.2); Alkaline Phosphatase 223 U/L (46-116); Anion Gap 8 (7-16); Aspartate Amino Transferase 21 U/L (0-34); BUN/Creatinine Ratio 13 Ratio (12-20); Bilirubin,Total 1.3 mg/dL (0.3-1.2); Blood Urea Nitrogen 8 mg/dL (9-23); Calcium 9.3 mg/dL (8.3-10.6); Calcium (Corrected) 9.5 mg/dL (8.5-10.1); Carbon Dioxide 27.6 mMol/L (20.0-31.0); Chloride 104 mMol/L (98-107); Creatinine (Component) 0.6 mg/dL (0.6-1.3); Estimated Creatinine Clearance 80.4 mL/min (>60); Globulin 3.2 gm/dL (2.3-3.5); Glucose 80 mg/dL (74-106); Magnesium 2.1 mg/dL (1.6-2.6); Osmolality,Calculated 276 (275-295); Phosphorous 3.6 mg/dL (2.4-5.1); Potassium 4.4 mMol/L (3.4-5.1); Sodium 140 mMol/L (136-145); Total Protein 7.0 gm/dL (5.7-8.2); eGFR > 60 See Note
[2025-03-31 07:31] VITALS: BP 122/73; PULSE 84; RESP 19; TEMP 37.1; O2SAT 94
[2025-03-31] MEDS: DOXYCYCLINE 100 MG TABLET PO (10:00)
[2025-03-31] MEDS: HEPARIN SOD INJ 5000 UNIT/ML VIAL SC (10:00)
[2025-03-31] MEDS: DOCUSATE SOD 100 MG CAPSULE PO (10:00)
[2025-03-31] MEDS: cefTRIAXone/D5w 1gm IV premix 1 GM/50 ML BAG IV (10:00)
[2025-03-31] MEDS: PANTOPRAZOLE 40 MG TABLET PO (10:00)
--- NOTE | 2025-03-31 10:40 | PD.RESDS ---
Planned Discharge Date 03/31/25 DS: Providers Provider Date of admission: 03/29/25 21:24 Primary care physician: Bryn Little MD Admitting Provider: Rashmi Ramirez MD Attending Provider on Admission: Rashmi Ramirez MD Consults: 03/29/25 22:12 Consult to Gynecology Routine Comment: C/f labia malignancy, most likely cellulitis Consulting Provider: Nancy Price 03/29/25 23:56 [facility] Referral - Nutrition Routine Comment: Positive screening for nutrition needs. [facility] Referral - Safety Routine Comment: Positive screening for safety needs. [facility] Referral - Transportation Routine Comment: Positive screening for transportation needs. [facility] Referral - Utilities Routine Comment: Positive screening for utility assistance needs. Attending Provider on DC: David Shaw MD Discharging Provider: Ricky Conklin MD DS: Diagnosis Problem List Completed Was Problem List Reviewed/Reconciled?: Yes Hospital Course Hospital Course Hospital course: 49F admitted for symptomatic macrocytic anemia and right labia majora cellulitis, screened positive for syphilis, clinically improving on antibiotics, with definitive STD therapy completed inpatient due to high concern for outpatient non-adherence. Patient presented on 03/29/2025 with weakness, malaise, and painful right labia swelling. Initial evaluation showed macrocytic anemia with Hgb 7.2 and normal iron studies, so B12, folate, reticulocyte count, peripheral smear, LDH, and Jackeline were sent for nutritional and hemolytic evaluation. Utox returned methamphetamine positive. Infectious workup including GC, BV, Trichomonas, ANA prep, wet prep, blood, and wound cultures were obtained. CT abdomen/pelvis showed hepatosplenomegaly and fatty liver infiltration; gallbladder ultrasound confirmed cholelithiasis without cholecystitis. OBGYN evaluated at bedside on 03/30 and found no discrete or drainable abscess, recommending doxycycline 100 mg BID ?7 days for empiric MRSA/SSTI and cervicitis-organism overlap coverage. Ceftriaxone 1 g IV daily was given starting 03/30 to ensure coverage for cervical pathogens that could be reliably administered inpatient. Syphilis screening returned positive during admission; HIV was nonreactive. Hepatitis panel remained pending. Given homelessness and unreliable outpatient medication access, definitive STD therapy was prioritized prior to discharge: Penicillin G benzathine 2.4M IM ?1 was administered 03/31 for syphilis, and metronidazole 2 g PO ?1 was given 03/31 to treat her prior Trichomonas infection in a single encounter. She remained afebrile, hemodynamically stable, tolerating PO, and clinically improving at discharge, with counseling and discharge plans coordinated toward [place] [facility]-based support and rapid outpatient PCP/OB follow-up. Diagnosis during admission: #Macrocytic anemia, unspecified (workup pending B12/folate) #Cellulitis of vulva/labia majora #Syphilis, unspecified (treated inpatient 03/31) #Methamphetamine use disorder #History of Trichomoniasis (treated inpatient 03/31) #Homelessness affecting medical care Discharge Instructions: -Continue Risperidone 2 mg once daily -Follow up with your PCP as soon as possible for anemia follow-up and [place] [facility]/med support. -Follow up with CLAIMS REPRESENTATIVE as soon as possible to reassess right labial infection and ensure STD follow-up. -Take Doxycycline 100 mg, 1 tablet in the morning and 1 tablet at night for 5 days, starting 04/01/2025 (first day after discharge). -This medication is critical to help treat your infection. Please keep taking it on schedule, we want to make sure you stay fully treated and safe. -Seek medical care immediately or return to the ER if you develop: fever, worsening pain, swelling, discharge, bleeding, dizziness, shortness of breath, or inability to walk. -Try to eat regular meals and consider taking a daily multivitamin when able. -Because follow-up and medications are important for your safety, we strongly recommend staying in a [place] [facility] facility or medical-supportive setting that can help ensure you take your medicines. -If you have access to a phone, consider setting daily reminders for medications or ask your care team to help you set them up before you leave. ----- Plan discussed with attending physician Dr. Colin Conklin MD PGY-1 Internal Medicine Time Spent with Patient Time attestation: Total time spent providing and/or coordinating discharge services: Time spent: Greater than 30 minutes Exam Vital Signs Temp Pulse Resp BP Pulse Ox O2 Del Method O2 Flow Rate 98.7 F 84 19 122/73 94 L Room Air 2 03/31/25 07:31 03/31/25 07:31 03/31/25 07:31 03/31/25 07:31 03/31/25 07:31 03/31/25 07:31 11/29/25 11:58 Narrative Exam General: Alert, awake, oriented, chronically malnourished but nontoxic appearing HEENT: Normocephalic atraumatic, mucous membranes moist Heart: Regular rate and rhythm, S1/S2 heard, no murmurs Lungs: Clear to auscultation bilaterally, normal respiratory effort, no distress Abdomen: Soft, nondistended, nontender, bowel sounds present, no fluid wave, no guarding Extremities: No edema, full movement of all extremities Skin: No rashes or bruising noted Neurologic: No focal deficits, speech intact, gait baseline stable : Right labia majora with improving erythema and induration, no fluctuance or active drainage, no CVA tenderness Discharge Plan Plan Patient Disposition: HOME (Self Care) Care Plan Goals: Discharge Instructions: -Continue Risperidone 2 mg once daily -Follow up with your PCP as soon as possible for anemia follow-up and [place] [facility]/med support. -Follow up with CLAIMS REPRESENTATIVE as soon as possible to reassess right labial infection and ensure STD follow-up. -Take Doxycycline 100 mg, 1 tablet in the morning and 1 tablet at night for 5 days, starting 04/01/2025 (first day after discharge). -This medication is critical to help treat your infection. Please keep taking it on schedule, we want to make sure you stay fully treated and safe. -Seek medical care immediately or return to the ER if you develop: fever, worsening pain, swelling, discharge, bleeding, dizziness, shortness of breath, or inability to walk. -Try to eat regular meals and consider taking a daily multivitamin when able. -Because follow-up and medications are important for your safety, we strongly recommend staying in a [place] [facility] [place] or medical-supportive setting that can help ensure you take your medicines. -If you have access to a phone, consider setting daily reminders for medications or ask your care team to help you set them up before you leave. Prescriptions/Referrals Prescriptions/Med Rec: New doxycycline hyclate 100 mg tablet 100 mg PO BID 5 Days Qty: 10 0RF Continued risperidone 1 mg Tablet 2 mg PO QDAY Referrals: Bryn Little MD [Primary Care Provider, Family Practice] Patient/Caregiver Discharge Instructions Education Materials: Anemia, Syphilis, Discharge Instructions for Cellulitis, When to Use Antibiotics, Depression and Suicide Print Language: Tristanian Stand Alone Forms: [employer] Award Info., Patient Portal Info Letter Discharge Order Discharge Orders: Discharge (Routine); Ordered 03/31/25 Ordered By: Ricky Conklin Quality Discharge Quality Measures VTE prophylaxis MD Attestestation MD Attestation I have examined the patient, reviewed labs and imaging findings, discussed the case with the resident(s), and reviewed entered orders. I agree with the plan of care as outlined in this note. Time Spent: [address] Colin MD
[2025-03-31 11:54] VITALS: BP 118/72; PULSE 76; RESP 19; TEMP 36.5; O2SAT 94
--- NOTE | 2025-03-31 12:46 | PC.SS ---
SS attempted to meet with pt to complete initial assessment 2x in which pt refused to speak and engage with SW. SS will reattempt if needed at a later time. Pt is homeless.
[2025-03-31 13:48] VITALS: PULSE 79; RESP 18; RESP 95
[2025-03-31 15:56] VITALS: BP 155/90; PULSE 90; RESP 18; TEMP 36.5; O2SAT 94
[2025-03-31 22:32] LABS: Folate 13.62 ng/mL (>5.38); Vitamin B12 451 pg/mL (211-911)
[2025-03-31 23:09] LABS: Hepatitis A Antibody IgM Non Reactive (Non React); Hepatitis B Core Antibody IgM Non Reactive (Non React); Hepatitis B Surface Antigen Non Reactive (Non React); Hepatitis C Antibody Non Reactive (Non React)
[2025-03-31 23:12] LABS: Hepatitis C Antibody Non Reactive (Non React)
== END 2025-03-31 16:25 | disposition home or self-care (01) | DRG 663 ==
LOC: SERX 21:35 → SERHOLD 21:38 → S3SX 23:39
PROVIDERS: Nurse Practitioner Family; Obstetrics & Gynecology; Admitting Provider Student in an Organized Health Care Education/Training Program; Emergency Provider Emergency Medicine; PCP Family Medicine; Visit Provider Student in an Organized Health Care Education/Training Program
DX: D53.9 Nutritional anemia, unspecified (principal); N76.2 Acute vulvitis; F20.9 Schizophrenia, unspecified; K80.20 Calculus of gallbladder without cholecystitis without obstruction; K76.0 Fatty (change of) liver, not elsewhere classified; Z91.148 Patient's other noncompliance with medication regimen for other reason; N39.0 Urinary tract infection, site not specified; A53.9 Syphilis, unspecified; N71.9 Inflammatory disease of uterus, unspecified; K76.89 Other specified diseases of liver; I47.20 Ventricular tachycardia, unspecified; F15.10 Other stimulant abuse, uncomplicated; N72 Inflammatory disease of cervix uteri; Z59.00 Homelessness unspecified
CPT/HCPCS: 36415; 51701; 71045; 74177; 76705; 80053; 80074; 80307; 81001; 81025; 82248; 82607; 82728; 82746; 83540; 83550; 83605; 83615; 83690; 83735; 84100; 84145; 84439; 84443; 84484; 85025; 85046; 85730; 86703; 86780; 86803; 86850; 86880; 86900; 86901; 86923; 87040; 87070; 87081; 87205; 87210; 87220; 87491; 87502; 87591; 87661; 87811; 90686; 93005; 93306; 96361; 96365; 99284; A4649; J0131; J0561; J0696; J1644; J2543; J7120; P9016; Q9967; A9270; J9060